=== PATIENT | male | born 1990 | race Caucasian/White ===

== ENCOUNTER 2016-06-22 16:20 | Emergency (ER) | payer SELFPAY ==
[~2016-06-22] VITALS: Wt 75.0 kg
== END 2016-06-22 19:39 | disposition left against medical advice (07) ==
LOC: FTE 16:20
DX: Z53.21 Procedure and treatment not carried out due to patient leaving prior to being seen by health care provider (principal)

== ENCOUNTER 2016-06-24 08:10 | Emergency (ER) | payer OTHER ==
[~2016-06-24] VITALS: Ht 180.3 cm; Wt 76.0 kg
[2016-06-24 08:11] VITALS: Ht 180.3 cm; Wt 76.0 kg
--- NOTE | 2016-06-24 08:44 | ERD ---
ER Documentation Chief Complaint Date/Time DATE: 06/24/16 TIME: 08:37 Chief Complaint r thumb old lac notb healing properly HPI This is a 26-year-old male who presents to the emergency department today for a right thumb laceration he sustained 6 days ago while breaking into a window. Patient states he used Dr. Holden to close it but it is not closing well. Patient states he was here a few days ago but there was too many people in the waiting room and he left because his thumb with bleeding. States he abuses IV drugs .Denies any fevers or chills. ROS All systems reviewed and are negative except as per history of present illness. Medications Home Meds Active Scripts Ibuprofen* (Motrin*) 800 Mg Tab, 800 MG PO Q6, #30 TAB Prov:EMMANUEL SANTANA PA-C 06/24/16 Cephalexin* (Keflex*) 500 Mg Capsule, 500 MG PO QID for 7 Days, CAP Prov:EMMANUEL SANTANA PA-C 06/24/16 Allergies Allergies: Coded Allergies: No Known Allergy (Unverified , 06/22/16) PMhx/Soc Medical and Surgical Hx: pt denies Medical Hx, pt denies Surgical Hx Hx Alcohol Use: No Hx Substance Use: No Hx Tobacco Use: No Smoking Status: Never smoker Physical Exam Vitals Vital Signs Date Time Temp Pulse Resp B/P Pulse Ox O2 Delivery O2 Flow Rate FiO2 06/24/16 08:11 97.1 86 18 138/84 100 Physical Exam Const: No acute distress Head: Atraumatic Eyes: Normal Conjunctiva ENT: Normal External Ears, Nose and Mouth. Neck: Full range of motion..~ No meningismus. Resp: Clear to auscultation bilaterally Cardio: Regular rate and rhythm, no murmurs Abd: Soft, non tender, non distended. Normal bowel sounds Skin: 2 cm laceration right thumb healing by secondary intention. No purulent drainage. No erythema or warmth. Back: No midline or flank tenderness MSK: 2 cm laceration right thumb healing by secondary intention. No purulent drainage. No erythema or warmth. Full active range of motion of thumb. Pulses 2+ . Distal neurovascularly intact. Neur: Awake and alert Psych: Normal Mood and Affect Results 24 hrs DIAGNOSTIC IMAGING REPORT Patient: KAMLESH MATHEWS : 1990 Age: 26 Sex: M MR #: [id number] DOS: 06/24/16 0000 Ordering MD: EMMANUEL SANTANA PA-C Location: [facility] Room/Bed: PROCEDURE: XR Thumb. CLINICAL INDICATION: Possible foreign body TECHNIQUE: Three views of the right thumb are available for review. COMPARISON: None available FINDINGS: There is a small exostosis at the base of the first metacarpal, likely sequelae of remote trauma. The remaining osseous structures are intact and there is no radiopaque foreign body. The articular surfaces are smooth. IMPRESSION: 1. No acute osseous abnormality or radiopaque foreign body. RPTAT: TT .Theo Marinelli MD, MD Date Time Electronically viewed and signed by .Theo Marinelli MD, MD on 06/24/2016 09:10 .d/ CC: EMMANUEL SANTANA PA-C Procedures/MDM This is a 26-year-old male who presents to the emergency department today for a laceration he sustained on his right thumb 6 days ago. I've explained to the patient that we are unable to suture his laceration at this time given the length of duration that he has had the laceration. Wound appears to healing by secondary intention at this time. Given that the patient did cut it breaking into a glass window I did obtain images of the right thumb to check for foreign body. Per the radiology report, images of the right thumb a small exostosis of the base of the first metacarpal likely sequelae of remote trauma. Remaining office structures are intact and there is no radiopaque foreign body. No evidence of acute fracture or dislocation. Patient's symptoms at this time consistent with laceration. There is no acute fracture dislocation. Again we will need to heal by secondary intention at this time. Patient is afebrile and otherwise well-appearing. I was suspicion for sepsis or deep space infection or cellulitis. There is no evidence of purulent drainage or erythema or warmth. Steri-Strips were placed here in the emergency department. I will give the patient a prescription for Keflex and Motrin. Instructions given for 48 hour wound check. At this time the patient is stable for discharge and outpatient management. Patient should follow up with their PCP in the next 1-2 days. They may return to the emergency department sooner for any persistent or worsening of symptoms. Patient understood and agreed with the plan. Departure Diagnosis: Primary Impression: Laceration Condition: EMMANUEL Hernández PA-C Jun 24, 2016 08:44
--- NOTE | 2016-06-24 09:10 | RADRPT ---
PROCEDURE: XR Thumb. CLINICAL INDICATION: Possible foreign body TECHNIQUE: Three views of the right thumb are available for review. COMPARISON: None available FINDINGS: There is a small exostosis at the base of the first metacarpal, likely sequelae of remote trauma. T he remaining osseous structures are intact and there is no radiopaque foreign body. The articular s urfaces are smooth. IMPRESSION: 1. No acute osseous abnormality or radiopaque foreign body. RPTAT: TT .Theo Marinelli MD, MD Date Time Electronically viewed and signed by .Theo Marinelli MD, MD on 06/24/2016 09:10 .d/
[2016-06-24] MEDS ORDERED: CEPH-443 PO (09:21)
[2016-06-24] MEDS ORDERED: IBUP800T25 PO (09:21)
== END 2016-06-24 09:36 | disposition home or self-care (01) ==
LOC: FTE 08:10
DX: S61.011A Laceration without foreign body of right thumb without damage to nail, initial encounter (principal); W26.9XXA Contact with unspecified sharp object(s), initial encounter; Y92.9 Unspecified place or not applicable
CPT/HCPCS: 73140

== ENCOUNTER 2016-09-12 21:50 | Emergency (ER) | payer OTHER ==
[~2016-09-12] VITALS: Ht 182.9 cm; Wt 79.5 kg
[~2016-09-12 21:50] MED LIST: CEPH-443 PO; IBUP800T25 PO
[2016-09-12 22:01] VITALS: Ht 182.9 cm; Wt 79.5 kg
[2016-09-12] MEDS ORDERED: LORAZEPAM 2 MG INJ IM STA (22:30)
--- NOTE | 2016-09-12 22:35 | ERD ---
ER Documentation Chief Complaint Date/Time DATE: 09/12/16 TIME: 22:33 Chief Complaint GARRICK LOPEZ c/o anxiety,homeless HPI Patient is a 26-year-old male who was found acting bizarrely in a store and was brought to the ER. Patient initially stated he had abdominal pain, then stated that he has anxiety, then stated to me that he had groin pain then later stated that he did not have groin pain. The patient is resisting answering questions, stating "I just need to breathe, I just need to breathe." Patient is homeless. History limited by patient's condition. ROS All systems reviewed and are negative except as per history of present illness. Medications Home Meds Active Scripts Ibuprofen* (Motrin*) 800 Mg Tab, 800 MG PO Q6, #30 TAB Prov:EMMANUEL SANTANA PA-C 06/24/16 Cephalexin* (Keflex*) 500 Mg Capsule, 500 MG PO QID for 7 Days, CAP Prov:EMMANUEL SANTANA PA-C 06/24/16 Allergies Allergies: Coded Allergies: No Known Allergy (Unverified , 06/22/16) PMhx/Soc Past medical history: Cannot assess Past surgical history: Cannot assess Social history: Patient is homeless, denies illicit drugs. Hx Alcohol Use: No Hx Substance Use: No Hx Tobacco Use: No FmHx Cannot assess Physical Exam Vitals Vital Signs Date Time Temp Pulse Resp B/P Pulse Ox O2 Delivery O2 Flow Rate FiO2 09/13/16 03:45 98.3 88 18 122/82 100 Room Air 09/13/16 02:00 97.0 92 18 126/87 100 Room Air 09/13/16 00:00 97.2 80 16 124/85 100 Room Air 09/12/16 22:01 98.6 130 18 139/82 98 Physical Exam Const: Patient talking to himself, poor eye contact Head: Atraumatic Eyes: Normal Conjunctiva, no pallor or icterus, pupils midrange ENT: Normal External Ears, Nose and Mouth. Moist mucous membranes Neck: Full range of motion. No meningismus. Resp: Clear to auscultation bilaterally Cardio: Regular rate and rhythm, no murmurs Abd: Soft, non tender, non distended. Skin: No petechiae or rashes Ext: No cyanosis, or edema Neur: Awake and alert, cranial nerves II through XII intact, not cooperative with rest of neurologic exam Psych: Responding to internal stimuli, refusing to answer questions, psychomotor agitation Result Diagram: 09/12/165 09/12/165 Results 24 hrs Laboratory Tests Test 09/12/16 23:15 White Blood Count 13.410^3/ul Red Blood Count 4.5610^6/ul Hemoglobin 13.7g/dl Hematocrit 39.8% Mean Corpuscular Volume 87.3fl Mean Corpuscular Hemoglobin 30.0pg Mean Corpuscular Hemoglobin Concent 34.4g/dl Red Cell Distribution Width 13.1% Platelet Count 41302^3/UL Mean Platelet Volume 9.1fl Neutrophils % 75.9% Lymphocytes % 12.0% Monocytes % 11.4% Eosinophils % 0.1% Basophils % 0.1% Nucleated Red Blood Cells % 0.0/100WBC Neutrophils # 10.210^3/ul Lymphocytes # 1.610^3/ul Monocytes # 1.510^3/ul Eosinophils # 0.010^3/ul Basophils # 0.010^3/ul Nucleated Red Blood Cells # 0.010^3/ul Sodium Level 140mmol/L Potassium Level 3.6mmol/L Chloride Level 103mmol/L Carbon Dioxide Level 25mmol/L Anion Gap 16 Blood Urea Nitrogen 16mg/dl Creatinine 1.05mg/dl Glucose Level 80mg/dl Calcium Level 9.1mg/dl Total Bilirubin 0.4mg/dl Direct Bilirubin 0.00mg/dl Indirect Bilirubin 0.4mg/dl Aspartate Amino Transf (AST/SGOT) 22IU/L Alanine Aminotransferase (ALT/SGPT) 39IU/L Alkaline Phosphatase 71IU/L Creatine Kinase 188IU/L Total Protein 7.4g/dl Albumin 4.3g/dl Globulin 3.10g/dl Albumin/Globulin Ratio 1.38 Salicylates Level < 1.0mg/dl Acetaminophen Level < 10.0ug/ml Ethyl Alcohol Level < 10.0mg/dl Current Medications Medications (Trade) Dose Ordered Sig/Isha Route PRN Reason Start Time Stop Time Status Last Admin Dose Admin Lorazepam (Ativan) 2 mg ONCE STAT IM 09/12/16 22:30 09/12/16 22:33 DC 09/12/16 22:41 Procedures/MDM Patient is a 26-year-old male who presents with complaint of anxiety and is noted to be talking to himself and to be withdrawn. Symptoms are suggestive of schizophrenia. Patient denies suicidal ideation or homicidal ideation, but provides only limited history. The patient was evaluated by tele-psychiatry, Dr. Kan, who recommends placing the patient on a 5150 hold. The patient is medically clear, awaiting PET team for hole placement. The patient will be placed on temporary hold until formal evaluation can take place. Urinary drug screen is still pending. Departure Diagnosis: Primary Impression: Psychosis Schizoaffective disorder type: unspecified Additional Impressions: Auditory hallucinations Anxiety Condition: Stable EVE MUNOZ MD Sep 12, 2016 22:35
[2016-09-12 23:23] LABS: ADD SCAN DIFF NO
[2016-09-12 23:31] LABS: ABNORMAL IP MESSAGE 1; BASOPHILS % 0.1 % (0.0-2.0); EOSINOPHILS % 0.1 % (0.0-7.0); HEMATOCRIT 39.8 % (42.0-52.0); HEMOGLOBIN 13.7 g/dl (14.0-18.0); LYMPHOCYTES # 1.6 10^3/ul (0.8-2.9); MEAN CORPUSCULAR HGB CONC 34.4 g/dl (32.0-37.0); MEAN CORPUSCULAR VOLUME 87.3 fl (82.0-101.0); MEAN PLATELET VOLUME 9.1 fl (7.4-10.4); MONOCYTE # 1.5 10^3/ul (0.3-0.9); MONOCYTES % 11.4 % (0.0-11.0); NEUTROPHIL # 10.2 10^3/ul (1.6-7.5); NEUTROPHILS % 75.9 % (39.0-77.0); PLATELET COUNT 294 10^3/UL (140-415); RED BLOOD COUNT 4.56 10^6/ul (4.70-6.10); RED CELL DISTRIBUTION WIDTH 13.1 % (11.5-14.5); WHITE BLOOD COUNT 13.4 10^3/ul (4.8-10.8)
[2016-09-12 23:40] LABS: ALBUMIN 4.3 g/dl (3.3-4.9); CHLORIDE 103 mmol/L (97-110); SODIUM 140 mmol/L (135-144)
[2016-09-12 23:41] LABS: POTASSIUM 3.6 mmol/L (3.5-5.1)
[2016-09-12 23:42] LABS: CREATININE 1.05 mg/dl (0.61-1.24)
[2016-09-12 23:43] LABS: ALANINE AMINOTRANSFERASE 39 IU/L (13-69); ALBUMIN/GLOBULIN RATIO 1.38; ALKALINE PHOSPHATASE 71 IU/L (42-121); ANION GAP 16 (8-16); ASPARTATE AMINO TRANSFERASE 22 IU/L (15-46); BILIRUBIN,INDIRECT 0.4 mg/dl (0-1.1); BILIRUBIN,TOTAL 0.4 mg/dl (0.2-1.3); BLOOD UREA NITROGEN 16 mg/dl (7-20); CALCIUM 9.1 mg/dl (8.4-10.2); CARBON DIOXIDE 25 mmol/L (21-31); CREATINE KINASE 188 IU/L (23-200); GLUCOSE 80 mg/dl (70-220); TOTAL PROTEIN 7.4 g/dl (6.1-8.1)
[2016-09-12 23:45] LABS: ACETAMINOPHEN < 10.0 ug/ml (10.0-30.0); ETHANOL < 10.0 mg/dl; SALICYLATE < 1.0 mg/dl (5.0-30.0)
--- NOTE | 2016-09-13 00:52 | PSY ---
Date/Time of Note Date/Time of Note DATE: 09/13/16 TIME: 00:51 Psychiatric Subjective Eval Consent Pt consented to telemedicine: Yes Subjective Evaluation Patient location: emergency Chief Complaint: BIBA RA c/o anxiety,homeless Medical history Problems Medical Problems: (1) Laceration Status: Acute Allergies: Coded Allergies: No Known Allergy (Unverified , 06/22/16) Psychiatric Objective Eval Mental Status Examination: Laboratory Results Laboratory Tests Test 09/12/16 23:15 White Blood Count 13.410^3/ul Red Blood Count 4.5610^6/ul Hemoglobin 13.7g/dl Hematocrit 39.8% Mean Corpuscular Volume 87.3fl Mean Corpuscular Hemoglobin 30.0pg Mean Corpuscular Hemoglobin Concent 34.4g/dl Red Cell Distribution Width 13.1% Platelet Count 20956^3/UL Mean Platelet Volume 9.1fl Neutrophils % 75.9% Lymphocytes % 12.0% Monocytes % 11.4% Eosinophils % 0.1% Basophils % 0.1% Nucleated Red Blood Cells % 0.0/100WBC Neutrophils # 10.210^3/ul Lymphocytes # 1.610^3/ul Monocytes # 1.510^3/ul Eosinophils # 0.010^3/ul Basophils # 0.010^3/ul Nucleated Red Blood Cells # 0.010^3/ul Sodium Level 140mmol/L Potassium Level 3.6mmol/L Chloride Level 103mmol/L Carbon Dioxide Level 25mmol/L Anion Gap 16 Blood Urea Nitrogen 16mg/dl Creatinine 1.05mg/dl Glucose Level 80mg/dl Calcium Level 9.1mg/dl Total Bilirubin 0.4mg/dl Direct Bilirubin 0.00mg/dl Indirect Bilirubin 0.4mg/dl Aspartate Amino Transf (AST/SGOT) 22IU/L Alanine Aminotransferase (ALT/SGPT) 39IU/L Alkaline Phosphatase 71IU/L Creatine Kinase 188IU/L Total Protein 7.4g/dl Albumin 4.3g/dl Globulin 3.10g/dl Albumin/Globulin Ratio 1.38 Salicylates Level < 1.0mg/dl Acetaminophen Level < 10.0ug/ml Ethyl Alcohol Level < 10.0mg/dl Assessment Additional comments: IDENTIFYING INFORMATION: 26 year old Male patient who is currently at the hospital and for whom psychiatric consultation was requested. SOURCES OF INFORMATION: The patient who appears to be unreliable and the medical records; the nursing staff. CHIEF COMPLAINT: I was having bad dreams". HISTORY OF PRESENT ILLNESS: The patient was interviewed via telemedicine in the presence of and under the supervision of nursing staff of the hospital. The consent to conducting this interview via telemedicine was obtained by the nursing staff at the hospital. Dr. Barbour reports that the patient was having erratic behavior, RTIS and would not respond to questions. According to the emergency room physician's note, the patient was found acting in bizarre ways in a store and was brought into the emergency room. The patient stated initially that he had abdominal pain, then stated that he has anxiety, and stated that he has groin pain later retracted that statement. The patient would then not respond to questions reporting that I just need to breathe, I just need to breathe. The patient reports that he was having bad dreams. Reports that he is having AH. He is unable to specify what type of auditory hallucination he is having. Denies having used drugs or alcohol. The patient then terminates the interview prematurely Bruna will not respond to any further questions. PAST MEDICAL HISTORY: Unable to assess, because the patient was not able to participate in the interview. CURRENT MEDICATIONS: Unable to assess, because the patient was not able to participate in the interview.. ALLERGIES TO MEDICATIONS: Unable to assess, because the patient was not able to participate in the interview- per chart the patient has no known medication allergies. LABORATORY TESTS: vital signs with temperature 98.6, blood pressure 139/82, heart rate 130, respiratory rate 18, pulse ox 98%. CBC with hemoglobin of 13.7, hematocrit 39.8. CMP unremarkable, alcohol was not detected. SOCIAL HISTORY: Unable to assess, because the patient was not able to participate in the interview. REVIEW OF SYSTEMS: Unable to assess, because the patient was not able to participate in the interview. MENTAL STATUS EXAMINATION: General Appearance and Behavior: somewhat sleepy, appears to be responding to internal stimuli, uncooperative with most of the interview, distant with the current interviewer, makes poor eye contact, poorly groomed, decreased psychomotor activity, no abnormal movements noted. Speech: slow rate, regular rhythm, increased latency, low volume, decreased amount. Flow of thought: tangential, illogical, not goal-directed. Content of thought: + auditory hallucinations, Unable to assess, because the patient was not able to participate in the interview. Mood: Unable to assess, because the patient was not able to participate in the interview. Affect: flat, decreased range of reactivity. Attention: normal based on the interview. Insight: poor. Judgment: poor. Memory: Unable to assess, because the patient was not able to participate in the interview. Sensorium: alert and oriented to person, Unable to assess, because the patient was not able to participate in the interview. ASSESSMENT: The patient's presentation and history are consistent with the diagnosis of unspecified psychotic disorder. The patient presents with an exacerbation of psychosis. The patient is not able to participate in the interview in a meaningful manner due to psychosis. It is unclear whether the patient has a past psychiatric history independent of substance use. It is unclear whether the patient has used substances or not tonight, but he denied having used alcohol or substances. [place] I: unspecified psychotic disorder. [place] II: Deferred. [place] III: see PMH. [place] IV: social stressors. [place] V: GAF: 10. PLAN: - Medication management: Would start haloperidol 5 mg IM PRN severe agitation [id number]. Would start diphenhydramine 50 mg IM PRN severe agitation [id number]. Will defer to the inpatient psychiatry team for other medication changes. - Labs: No other laboratory tests are needed at this time. - Psychotherapy: Provided supportive psychotherapy and psychoeducation. - Disposition: Would recommend involuntary admission to the inpatient psychiatric unit given the severity of the patient's psychiatric condition and the fact that the patient is an imminent danger to self and/or others so long as the patient has been cleared medically for admission to psychiatry. Inpatient psychiatric admission is at this time the least restrictive environment where the patient can receive the psychiatric care that is needed. Would place on suicide precautions. The patient fulfills criteria for being placed on involuntary hold due to being gravely disabled. Discussed about the above plan with Dr. Barbour. DEANN WERNER MD Sep 13, 2016 00:52
[2016-09-13 06:46] LABS: ADD UMIC YES; URINE BILIRUBIN (Dip) NEGATIVE (NEGATIVE); URINE BLOOD (Dip) NEGATIVE (NEGATIVE); URINE COLOR LT. YELLOW (YELLOW); URINE GLUCOSE (Dip) NEGATIVE (NEGATIVE); URINE KETONES (Dip) NEGATIVE (NEGATIVE); URINE LEUKOCYTE ESTERASE (Dip) NEGATIVE (NEGATIVE); URINE NITRITE (Dip) NEGATIVE (NEGATIVE); URINE TOTAL PROTEIN (Dip) 1+ (NEGATIVE); URINE UROBILINOGEN (Dip) 0.2 E.U./dL (0.1-1.0)
[2016-09-13 07:11] LABS: MUCUS,URINE OCCASIONAL; URINE RBCS NONE SEEN /HPF (0)
[2016-09-13 07:25] LABS: BARBITURATES Negative (NEGATIVE); BENZODIAZEPINES Negative (NEGATIVE); CANNABINOIDS Negative (NEGATIVE); COCAINE Negative (NEGATIVE); OPIATES Negative (NEGATIVE)
[2016-09-13] MEDS ORDERED: HYDR25CA PO (11:10)
--- NOTE | 2016-09-13 11:12 | QN ---
Documentation Comment This patient was signed out to me. He remained calm in the emergency room was very reasonable. PMRT evaluated the patient and he stated he does not have any suicidal homicidal ideations. PMR T specialist who evaluated the patient face-to -face at bedside recommends discharge does not seen any reason for inpatient admission at this point. A minute discharging him with Vistaril for anxiety as well as strict return precautions emergency room if he has any thoughts of harming himself or others. He states that he will return if anything like this happens. Is also given resources Sonya Freeman I'm discharging with primary care follow-up today or tomorrow. KAEL SKY DO Sep 13, 2016 11:11
[2016-09-13 11:21] VITALS: BP 135/63; PULSE 90; RESP 19; TEMP 97.8
== END 2016-09-13 11:21 | disposition home or self-care (01) ==
LOC: E/R 21:50
DX: F29 Unspecified psychosis not due to a substance or known physiological condition (principal)
CPT/HCPCS: 80053; 80306; 80307; 81001; 81003; 82550; 82553; 84484; 85025; J2060; 96372

== ENCOUNTER 2017-01-07 08:35 | Emergency (ER) | payer MEDICAID, OTHER ==
[~2017-01-07] VITALS: Ht 177.8 cm; Wt 78.5 kg
[~2017-01-07 08:35] MED LIST changes: +HYDR25CA PO
[2017-01-07 08:37] VITALS: Ht 177.8 cm; Wt 78.5 kg
[2017-01-07] MEDS ORDERED: CLOT30CR24 TOP (08:53)
--- NOTE | 2017-01-07 08:59 | ERA ---
ER Documentation Chief Complaint Date/Time DATE: 01/07/17 TIME: 08:55 Chief Complaint rash/fungus on groin x 2 weeks HPI 18-year-old male presenting with a chief complaint of "blue fuzzy stuff on my scrotum" times months. Patient also describes mild pruritus. States he rubs it often comes back. Has not washed with soap and water with temporary relief. Denies pain, dysuria, hematuria, discharge, multiple sexual partners, or similar symptoms in the past. No other complaints. ROS All systems reviewed and are negative except as per history of present illness. Medications Home Meds Active Scripts Clotrimazole* (Clotrimazole* AF) 1% - 30 Gm Cream.gm., 1 APPLIC TOP BID for 7 Days, TUB Prov:JEIMY TOMLINSON PA-C 01/07/17 Hydroxyzine Pamoate* (Vistaril*) 25 Mg Capsule, 25 MG PO Q8 for ANXIETY, #10 CAP Prov:KAEL SKY DO 09/13/16 Ibuprofen* (Motrin*) 800 Mg Tab, 800 MG PO Q6, #30 TAB Prov:EMMANUEL SANTANA PA-C 06/24/16 Cephalexin* (Keflex*) 500 Mg Capsule, 500 MG PO QID for 7 Days, CAP Prov:EMMANUEL SANTANA PA-C 06/24/16 Allergies Allergies: Coded Allergies: No Known Allergy (Unverified , 01/07/17) PMhx/Soc History of Surgery: No Anesthesia Reaction: No Hx Neurological Disorder: No Hx Respiratory Disorders: No Hx Cardiac Disorders: No Hx Psychiatric Problems: Yes (DEPRESSION, ANXIETY) Hx Miscellaneous Medical Probl: No Hx Alcohol Use: No Hx Substance Use: No Hx Tobacco Use: No Physical Exam Vitals Vital Signs Date Time Temp Pulse Resp B/P Pulse Ox O2 Delivery O2 Flow Rate FiO2 01/07/17 08:37 97.5 86 16 115/73 96 Physical Exam Const: Well-appearing 26-year-old male in no acute distress Head: Atraumatic Eyes: Normal Conjunctiva ENT: Normal External Ears, Nose and Mouth. Neck: Full range of motion..~ No meningismus. Resp: Clear to auscultation bilaterally Cardio: Regular rate and rhythm, no murmurs Abd: Soft, non tender, non distended. Normal bowel sounds Skin: No petechiae or rashes Back: No midline or flank tenderness Ext: No cyanosis, or edema Neur: Awake and alert Psych: Normal Mood and Affect : No testicular pain. Adequate cremasteric reflex. Lint type of material from a blue underwear on his scrotal sac that rubs off easily. Procedures/MDM Well-appearing 26-year-old male with a chief complaints of possible fungus on his scrotum. Physical exam was remarkable for blue lint-type material on scrotum. Symptoms returned even after cleaning it off. Most likely diagnosis is material from underwear versus tinea cruris. We will go ahead and prescribe the patient clotrimazole. I have spoke with the patient regarding their condition and future management. They have verbally responded that they understand their status and treatment plan. The patients vitals are stable, and their current condition is appropriate for discharge. The patient will be given discharge instructions with return precautions. Departure Diagnosis: Primary Impression: Tinea cruris Additional Impression: Rash Condition: Stable Patient Instructions: Self-Care for Skin Rashes Additional Instructions: Follow up with your PCP within the next 1-3 days for a more thorough evaluation and a possible referral to a specialist. Return the the emergency department immediately if symptoms worsen or change. If you have any questions regarding medications, ask your pharmacist or us before you leave. If any adverse reactions occur while taking your medications, discontinue the treatment and return to the emergency department immediately. Take your medications as directed, and complete the entire course of treatment. JEIMY TOMLINSON PA-C Jan 07, 2017 08:59
== END 2017-01-07 09:50 | disposition home or self-care (01) ==
LOC: FTE 08:35
DX: B35.6 Tinea cruris (principal)
CPT/HCPCS: 99283

== ENCOUNTER 2017-07-06 13:41 | Emergency (ER) | END 2017-07-06 15:03 | disposition home or self-care (01) ==

== ENCOUNTER 2017-08-16 10:14 | Emergency (ER) | END 2017-08-16 13:30 | disposition home or self-care (01) ==

== ENCOUNTER 2017-10-17 03:11 | Emergency (ER) | END 2017-10-17 06:19 | disposition home or self-care (01) ==

== ENCOUNTER 2017-10-17 12:45 | Emergency (ER) | END 2017-10-17 13:52 | disposition home or self-care (01) ==

== ENCOUNTER 2017-10-18 20:55 | Emergency (ER) | END 2017-10-18 23:35 | disposition home or self-care (01) ==

== ENCOUNTER 2017-10-19 08:17 | Emergency (ER) | END 2017-10-19 16:17 | disposition home or self-care (01) ==

== ENCOUNTER 2018-04-13 13:11 | Emergency (ER) | END 2018-04-13 16:42 | disposition home or self-care (01) ==

== ENCOUNTER 2018-04-14 03:06 | Emergency (ER) | END 2018-04-14 11:28 ==

== ENCOUNTER 2018-05-14 00:30 | Emergency (ER) | END 2018-05-14 08:00 | disposition home or self-care (01) ==

== ENCOUNTER 2018-06-17 17:57 | Emergency (ER) | payer OTHER ==
[~2018-06-17] VITALS: Ht 152.4 cm; Wt 88.0 kg
[~2018-06-17 17:57] MED LIST changes: -CEPH-443 PO; -HYDR25CA PO; -IBUP800T25 PO; +NAPR-985 PO
[2018-06-17 17:58] VITALS: Ht 152.4 cm; Wt 88.0 kg
--- NOTE | 2018-06-17 20:54 | EN ---
Date/Time of Note Date/Time of Note DATE: 06/17/18 TIME: 20:52 ER Progress Note Upon evaluation of patient at the bedside, patient verbalizes that he has history of schizoaffective disorder and is feeling suicidal and wants to hurt himself, patient verbalized this in front of the nurse, and informed charge nurse about this. Patient will be transferred in the main department for further evaluation and psychiatric evaluation. PETER ANDREWS NP Jun 17, 2018 20:53
--- NOTE | 2018-06-17 23:21 | ERD ---
ER Documentation Chief Complaint Chief Complaint Suicidal ideation HPI 28-year-old male who presents to the emergency with suicidal ideation. He initially checked in clinic of abdominal pain but denies this. He states the reason he is in the emergency department is because he is feeling suicidal. He states that his just filed for divorce. The patient has an active plan to jump into traffic. He denies any drug or alcohol today. ROS All systems reviewed and are negative except as per history of present illness. Medications Home Meds Active Scripts Naproxen* (Naprosyn*) 500 Mg Tablet, 500 MG PO BID PRN for PAIN AND/OR INFLAMMATION, #30 TAB Prov:FLO AGUILAR MD 05/14/18 Allergies Allergies: Coded Allergies: No Known Allergy (Unverified , 04/13/18) PMhx/Soc History of Surgery: Yes (right arm) Anesthesia Reaction: No Hx Neurological Disorder: Yes (SEIZURE) Hx Respiratory Disorders: No Hx Cardiac Disorders: Yes (HTN) Hx Psychiatric Problems: Yes (schizoaffective) Hx Miscellaneous Medical Probl: Yes (HTN) Hx Alcohol Use: No Hx Substance Use: Yes Hx Tobacco Use: Yes Smoking Status: Current every day smoker FmHx Family History: No diabetes Physical Exam Vitals Vital Signs Date Temp Pulse Resp B/P (MAP) Pulse Ox O2 O2 Flow FiO2 Time Delivery Rate 06/17/18 99.0 122 18 99 17:58 Physical Exam General: Well developed, well nourished, no acute distress Head: Normocephalic, atraumatic. Eyes: Pupils equally reactive, EOM intact ENT: Moist mucous membranes Neck: Supple, no lymphadenopathy Respiratory: Lungs clear bilaterally, no distress Cardiovascular: RRR, no murmurs, rubs, or gallops Abdominal: Soft, non-tender, non-distended, no peritoneal signs : Deferred MSK: No edema, no unilateral swelling, 5/5 strength Neurologic: Alert and oriented, moving all extremities, normal speech, no focal weakness, no cerebellar signs Skin: No rash Psych: Suicidal ideation with plan Result Diagram: 06/17/18210906/17/182109 Results 24 hrs Laboratory Tests Test 06/17/18 21:10 White Blood Count 6.3 10^3/ul Red Blood Count 4.45 10^6/ul Hemoglobin 13.2 g/dl Hematocrit 38.5 % Mean Corpuscular Volume 86.5 fl Mean Corpuscular Hemoglobin 29.7 pg Mean Corpuscular Hemoglobin Concent 34.3 g/dl Red Cell Distribution Width 12.9 % Platelet Count 222 10^3/UL Mean Platelet Volume 8.9 fl Immature Granulocytes % 0.300 % Neutrophils % 52.6 % Lymphocytes % 31.9 % Monocytes % 13.0 % Eosinophils % 1.7 % Basophils % 0.5 % Nucleated Red Blood Cells % 0.0 /100WBC Immature Granulocytes # 0.020 10^3/ul Neutrophils # 3.3 10^3/ul Lymphocytes # 2.0 10^3/ul Monocytes # 0.8 10^3/ul Eosinophils # 0.1 10^3/ul Basophils # 0.0 10^3/ul Nucleated Red Blood Cells # 0.0 10^3/ul Sodium Level 137 mmol/L Potassium Level 4.2 mmol/L Chloride Level 103 mmol/L Carbon Dioxide Level 26 mmol/L Anion Gap 8 Blood Urea Nitrogen 26 mg/dl Creatinine 0.98 mg/dl Est Glomerular Filtrat Rate mL/min > 60 mL/min Glucose Level 119 mg/dl Calcium Level 9.3 mg/dl Total Bilirubin 0.1 mg/dl Direct Bilirubin 0.00 mg/dl Indirect Bilirubin 0.1 mg/dl Aspartate Amino Transf (AST/SGOT) 16 IU/L Alanine Aminotransferase (ALT/SGPT) 17 IU/L Alkaline Phosphatase 52 IU/L Total Protein 6.8 g/dl Albumin 4.0 g/dl Globulin 2.80 g/dl Albumin/Globulin Ratio 1.42 Ethyl Alcohol Level < 10.0 mg/dl Procedures/MDM EKG/DIAGNOSTIC IMAGING: [None Required] LAB INTERPRETATION: [No acute process] MEDICAL DECISION MAKING: The patient's presentation is consistent with underlying psychiatric illness and likely exacerbation of this illness and/or psychosis. I have a much lower clinical concern for delirium or acute organic pathology such as toxicologic, metabolic, ischemic, intracranial hemorrhage, infectious process. However, we must rule this out prior to relying a diagnosis of underlying psychiatric illness. The patient's workup will include medical screening examination and appropriate laboratory testing. If the patient's medical examination does not reveal acute organic pathology the patient will be medically cleared for psychiatric evaluation. ER COURSE: The patient's evaluation does not suggest an acute organic pathology. At this time I believe the patient's presentation is very consistent with underlying psychiatric illness. The patient is medically cleared for psychiatric evaluation. CONSULTATION: Psychiatric consultation: Telemetry medicine psychiatry has been consulted on this case to evaluate the patient for possible acute psychiatric illness that would require inpatient hospitalization. DISPOSITION PLAN: Pending psychiatric evaluation Departure Diagnosis: Primary Impression: Suicidal ideation Condition: Stable ELIJAH NAVA MD Jun 17, 2018 23:21
--- NOTE | 2018-06-18 00:26 | PSY ---
Date/Time of Note Date/Time of Note DATE: 06/18/18 TIME: 00:13 Psychiatric Subjective Eval Consent Pt consented to telemedicine: Yes Subjective Evaluation Patient location: emergency Chief Complaint: RLQ ABD PAIN X 11 HOURS History of present illness He was very uncooperative and vague and stated that his is leaving him and so he wants to jump off a bridge. He denied having hallucinations. When asked if he really wanted to commit suicide and he stated, "Yeah, I do." He fell asleep repeatedly which made a more comprehensive interview impossible. Past psychiatric history Stated he was diagnosed Schizoaffective but never took medication and was never hospitalized. He denied past suicide attempts. Hospitalization: no Family History None Medical history Problems Medical Problems: (1) Abdominal pain Status: Acute (2) Abdominal pain Status: Acute (3) Abdominal pain Status: Acute (4) Abdominal pain Status: Acute (5) Abscess Status: Acute (6) Acute psychosis Status: Acute (7) Aggressive behavior Status: Acute (8) Anxiety Status: Acute (9) Anxiety Status: Acute (10) Anxiety Status: Acute (11) Anxiety attack Status: Acute (12) Athletes foot Status: Acute (13) Auditory hallucinations Status: Acute (14) Back pain Status: Acute (15) Blister of foot Status: Acute (16) Blister of foot Status: Acute (17) Cellulitis of back Status: Acute (18) Cellulitis of back Status: Acute (19) Constipation Status: Acute (20) Dehydration Status: Acute (21) Drug abuse Status: Acute (22) Drug abuse Status: Acute (23) Drug abuse Status: Acute (24) Drug dependence Status: Acute (25) Drug dependence Status: Acute (26) Drug overdose Status: Acute (27) Drug overdose Status: Acute (28) Drug use Status: Acute (29) Drug use Status: Acute (30) Elevated blood pressure reading Status: Acute (31) Foot pain Status: Acute (32) Foot pain Status: Acute (33) Foot pain Status: Acute (34) Hallucinations Status: Acute (35) History of schizophrenia Status: Acute (36) Increased anion gap metabolic acidosis Status: Acute (37) Ingrown toenail Status: Acute (38) Laceration Status: Acute (39) Left nephrolithiasis Status: Acute (40) Leukocytosis Status: Acute (41) Methamphetamine abuse Status: Acute (42) Methamphetamine abuse Status: Acute (43) Methamphetamine use Status: Acute (44) Nausea Status: Acute (45) Nausea Status: Acute (46) Normocytic anemia Status: Acute (47) Polysubstance abuse Status: Acute (48) Psychosis Status: Acute (49) PTSD (post-traumatic stress disorder) Status: Acute (50) Rash Status: Acute (51) Substance abuse Status: Acute (52) Suicidal ideation Status: Acute (53) Suicidal ideation Status: Acute (54) Suicidal ideation Status: Acute (55) Tachycardia Status: Acute (56) Tinea cruris Status: Acute (57) Trenchfoot Status: Acute (58) Urethritis Status: Acute Allergies: Coded Allergies: No Known Allergy (Unverified , 04/13/18) Substance Abuse Substance use: No known substance abuse (He denied drug use. UTOX pending.) Social History Marital status: (Pending) Level of education: [employer] DPA/Conservatorship: No Occupation/Jail: [employer] Psychiatric Objective Eval Mental Status Examination: Appearance: Disheveled Eye Contact: Poor Psychomotor Activity: Slow Behavior: Guarded Speech: Clear AFFECT: Blunt Mood: Depressed Though Process: Linear Thought Content: Normal Suicidal: Yes Homicidal: No On 72 hour hold: No Orientation: x3 Cognition: Drowsy Insight: Impared Judgement: Impared Attention Span: Distractible Laboratory Results Laboratory Tests Test 06/17/18 21:10 06/17/18 23:33 White Blood Count 6.3 10^3/ul Red Blood Count 4.45 10^6/ul Hemoglobin 13.2 g/dl Hematocrit 38.5 % Mean Corpuscular Volume 86.5 fl Mean Corpuscular Hemoglobin 29.7 pg Mean Corpuscular Hemoglobin Concent 34.3 g/dl Red Cell Distribution Width 12.9 % Platelet Count 222 10^3/UL Mean Platelet Volume 8.9 fl Immature Granulocytes % 0.300 % Neutrophils % 52.6 % Lymphocytes % 31.9 % Monocytes % 13.0 % Eosinophils % 1.7 % Basophils % 0.5 % Nucleated Red Blood Cells % 0.0 /100WBC Immature Granulocytes # 0.020 10^3/ul Neutrophils # 3.3 10^3/ul Lymphocytes # 2.0 10^3/ul Monocytes # 0.8 10^3/ul Eosinophils # 0.1 10^3/ul Basophils # 0.0 10^3/ul Nucleated Red Blood Cells # 0.0 10^3/ul Sodium Level 137 mmol/L Potassium Level 4.2 mmol/L Chloride Level 103 mmol/L Carbon Dioxide Level 26 mmol/L Anion Gap 8 Blood Urea Nitrogen 26 mg/dl Creatinine 0.98 mg/dl Est Glomerular Filtrat Rate mL/min > 60 mL/min Glucose Level 119 mg/dl Calcium Level 9.3 mg/dl Total Bilirubin 0.1 mg/dl Direct Bilirubin 0.00 mg/dl Indirect Bilirubin 0.1 mg/dl Aspartate Amino Transf (AST/SGOT) 16 IU/L Alanine Aminotransferase (ALT/SGPT) 17 IU/L Alkaline Phosphatase 52 IU/L Total Protein 6.8 g/dl Albumin 4.0 g/dl Globulin 2.80 g/dl Albumin/Globulin Ratio 1.42 Ethyl Alcohol Level < 10.0 mg/dl Urine Opiates Screen Positive Urine Barbiturates Negative Urine Amphetamines Screen POSITIVE Urine Benzodiazepines Screen Negative Urine Cocaine Screen Negative Urine Cannabinoids Negative Assessment and Plan Assessment/Diagnosis Diagnosis Adjustment Disorder with Depressed Mood Recommendation/Plan Multiple antipsychotics: No Discharge Disposition: Psychiatric inpatient Legal Status: Place involuntary hold ALETHA EVANS MD Jun 18, 2018 00:24
[2018-06-18 08:55] VITALS: BP 118/74; PULSE 83; RESP 16
[2018-07-17] MEDS ORDERED: LORA1TAB PO (19:35)
== END 2018-06-18 09:00 ==
LOC: FTE 17:57 → E/R 06-18 09:00
DX: R45.851 Suicidal ideations (principal); R40.2142 Coma scale, eyes open, spontaneous, at arrival to emergency department; R40.2362 Coma scale, best motor response, obeys commands, at arrival to emergency department; R40.2252 Coma scale, best verbal response, oriented, at arrival to emergency department; I10 Essential (primary) hypertension; F17.210 Nicotine dependence, cigarettes, uncomplicated
CPT/HCPCS: 36415; 80053; 80307; 85025; Z7502

== ENCOUNTER 2018-08-07 11:13 | Emergency (ER) | payer OTHER ==
[~2018-08-07] VITALS: Ht 170.2 cm; Wt 75.0 kg
[~2018-08-07 11:13] MED LIST changes: +LORA1TAB PO
[2018-08-07 11:29] VITALS: Ht 170.2 cm; Wt 75.0 kg
--- NOTE | 2018-08-07 12:03 | ERD ---
ER Documentation Chief Complaint Chief Complaint BIB RA FOR EVAL OF METH USE. NO DISTRESS NOTED. HPI 28-year-old male well-known to this emergency department and this provider who presents to the emergency room because he wants an evaluation. The patient has a history of polysubstance abuse. He states that he used methamphetamine in the past 24 hours. He is called the paramedics 3 times today for nonspecific etiology. The patient was apparently walking by a holiness in the holiness was concerned with how he appeared and called 911. The patient states that he occasionally has shortness of breath but otherwise has no complaints and is asking for food. He denies any chest pain falls or injury. He denies any suicidal or homicidal ideation. Patient states that he just wants to rest for a bit and then would like to be discharged. ROS All systems reviewed and are negative except as per history of present illness. Medications Home Meds Active Scripts Lorazepam* (Lorazepam*) 1 Mg Tablet, 1 MG PO Q8H PRN for ANXIETY, #10 TAB Prov:MIRELLA HOFFMAN MD 07/17/18 Naproxen* (Naprosyn*) 500 Mg Tablet, 500 MG PO BID PRN for PAIN AND/OR INFLAMMATION, #30 TAB Prov:FLO AGUILAR MD 05/14/18 Allergies Allergies: Coded Allergies: No Known Allergy (Unverified , 04/13/18) PMhx/Soc History of Surgery: Yes (right arm) Anesthesia Reaction: No Hx Neurological Disorder: Yes (SEIZURE) Hx Respiratory Disorders: No Hx Cardiac Disorders: Yes (HTN) Hx Psychiatric Problems: Yes (schizoprenia) Hx Miscellaneous Medical Probl: Yes (METH USE) Hx Alcohol Use: No Hx Substance Use: Yes (DAILY METH USE) Hx Tobacco Use: Yes Smoking Status: Current every day smoker FmHx Family History: No diabetes Physical Exam Vitals Vital Signs Date Temp Pulse Resp B/P (MAP) Pulse Ox O2 O2 Flow FiO2 Time Delivery Rate 08/07/18 98.0 100 19 144/110 99 11:29 (121) Physical Exam General: Disheveled, no acute distress Head: Normocephalic, atraumatic. Eyes: Pupils equally reactive, EOM intact ENT: Moist mucous membranes Neck: Supple, no lymphadenopathy Respiratory: Lungs clear bilaterally, no distress Cardiovascular: RRR, no murmurs, rubs, or gallops Abdominal: Soft, non-tender, non-distended, no peritoneal signs : Deferred MSK: No edema, no unilateral swelling, 5/5 strength Neurologic: Alert and oriented, moving all extremities, normal speech, no focal weakness, no cerebellar signs Skin: No rash Psych: Normal mood, denies SI or HI Procedures/MDM The patient has a medical screening examination that reveals no signs or symp toms of acute medical emergency or psychiatric emergency. The patient has a long-standing history of malingering, drug-seeking behavior and benzodiazepine dependence in the emergency room setting. The patient is steady on his feet. The patient has denied any suicidal or homicidal ideation. He has refused geriatric social work professor resources. The patient was given food. Patient can ambulate and navigate the community. I believe at this point he is safe for discharge. Departure Diagnosis: Primary Impression: Malingering Additional Impression: Polysubstance abuse Condition: Good Patient Instructions: Substance abuse Referrals: [facility] YOU HAVE RECEIVED A MEDICAL SCREENING EXAM AND THE RESULTS INDICATE THAT YOU DO NOT HAVE A CONDITION THAT REQUIRES URGENT TREATMENT IN THE EMERGENCY DEPARTMENT. FURTHER EVALUATION AND TREATMENT OF YOUR CONDITION CAN WAIT UNTIL YOU ARE SEEN IN YOUR DOCTORS OFFICE WITHIN THE NEXT 1-2 DAYS. IT IS YOUR RESPONSIBILITY TO MAKE AN APPOINTMENT FOR FOLOW-UP CARE. IF YOU HAVE A PRIMARY DOCTOR --you should call your primary doctor and schedule an appointment IF YOU DO NOT HAVE A PRIMARY DOCTOR YOU CAN CALL OUR PHYSICIAN REFERRAL HOTLINE AT IF YOU CAN NOT AFFORD TO SEE A PHYSICIAN YOU CAN CHOSE FROM THE FOLLOWING [facility] [address] [facility]. [facility] [address] [facility] [facility] [address] [facility] [facility] [address] [facility]. [facility] [address] [facility]. [facility]. [address] [facility] YOU HAVE RECEIVED A MEDICAL SCREENING EXAM AND THE RESULTS INDICATE THAT YOU DO NOT HAVE A CONDITION THAT REQUIRES URGENT TREATMENT IN THE EMERGENCY DEPARTMENT. FURTHER EVALUATION AND TREATMENT OF YOUR CONDITION CAN WAIT UNTIL YOU ARE SEEN IN YOUR DOCTORS OFFICE WITHIN THE NEXT 1-2 DAYS. IT IS YOUR RESPONSIBILITY TO MAKE AN APPOINTMENT FOR FOLOW-UP CARE. IF YOU HAVE A PRIMARY DOCTOR --you should call your primary doctor and schedule and appointment IF YOU DO NOT HAVE A PRIMARY DOCTOR YOU CAN CALL OUR PHYSICIAN REFERRAL HOTLINE AT . IF YOU CAN NOT AFFORD TO SEE A PHYSICIAN YOU CAN CHOSE FROM THE FOLLOWING [facility] INSTITUTIONS: [facility] [address] [place] [address] [facility] [address] [place] [address] [facility] [address] [place] [address] Additional Instructions: Call your primary care doctor TOMORROW for an appointment during the next 1 WEEK.Tell the private secretary that you were referred from this facility.See the doctor sooner or return here if your condition worsens before your appointment time. ELIJAH NAVA MD Aug 07, 2018 12:03
[2018-08-07 12:25] VITALS: BP 134/95; PULSE 91; RESP 17
== END 2018-08-07 12:25 | disposition home or self-care (01) ==
LOC: E/R 11:13
DX: F15.10 Other stimulant abuse, uncomplicated (principal); I10 Essential (primary) hypertension; F17.210 Nicotine dependence, cigarettes, uncomplicated; Z76.5 Malingerer [conscious simulation]
CPT/HCPCS: 99283

== ENCOUNTER 2018-09-28 02:33 | Emergency (ER) | payer OTHER ==
[~2018-09-28] VITALS: Wt 72.9 kg
--- NOTE | 2018-09-28 04:04 | PSY ---
Date/Time of Note Date/Time of Note DATE: 09/28/18 TIME: 03:51 Psychiatric Subjective Eval Consent Pt consented to telemedicine: Yes Subjective Evaluation Patient location: emergency Chief Complaint: bib ra, pt stated "I need help". denies SI/HI last use of meth few hrs ago Medical history Problems Medical Problems: (1) Abdominal pain Status: Acute (2) Abdominal pain Status: Acute (3) Abdominal pain Status: Acute (4) Abdominal pain Status: Acute (5) Abscess Status: Acute (6) Acute psychosis Status: Acute (7) Aggressive behavior Status: Acute (8) Anxiety Status: Acute (9) Anxiety Status: Acute (10) Anxiety Status: Acute (11) Anxiety Status: Acute (12) Anxiety Status: Acute (13) Anxiety attack Status: Acute (14) Athletes foot Status: Acute (15) Auditory hallucinations Status: Acute (16) Back pain Status: Acute (17) Blister of foot Status: Acute (18) Blister of foot Status: Acute (19) Cellulitis of back Status: Acute (20) Cellulitis of back Status: Acute (21) Constipation Status: Acute (22) Dehydration Status: Acute (23) Drug abuse Status: Acute (24) Drug abuse Status: Acute (25) Drug abuse Status: Acute (26) Drug dependence Status: Acute (27) Drug dependence Status: Acute (28) Drug overdose Status: Acute (29) Drug overdose Status: Acute (30) Drug use Status: Acute (31) Drug use Status: Acute (32) Dysuria Status: Acute (33) Elevated blood pressure reading Status: Acute (34) Foot pain Status: Acute (35) Foot pain Status: Acute (36) Foot pain Status: Acute (37) Hallucinations Status: Acute (38) Hallucinations Status: Acute (39) History of schizophrenia Status: Acute (40) Increased anion gap metabolic acidosis Status: Acute (41) Ingrown toenail Status: Acute (42) Laceration Status: Acute (43) Left nephrolithiasis Status: Acute (44) Leukocytosis Status: Acute (45) Malingering Status: Acute (46) Methamphetamine abuse Status: Acute (47) Methamphetamine abuse Status: Acute (48) Methamphetamine use Status: Acute (49) Nausea Status: Acute (50) Nausea Status: Acute (51) Normal exam Status: Acute (52) Normal exam Status: Acute (53) Normocytic anemia Status: Acute (54) Polysubstance abuse Status: Acute (55) Polysubstance abuse Status: Acute (56) Psychosis Status: Acute (57) PTSD (post-traumatic stress disorder) Status: Acute (58) Rash Status: Acute (59) Substance abuse Status: Acute (60) Suicidal ideation Status: Acute (61) Suicidal ideation Status: Acute (62) Suicidal ideation Status: Acute (63) Tachycardia Status: Acute (64) Tinea cruris Status: Acute (65) Trenchfoot Status: Acute (66) Urethral discharge Status: Acute (67) Urethritis Status: Acute Allergies: Coded Allergies: No Known Allergy (Unverified , 04/13/18) Assessment and Plan Recommendation/Plan Discharge Disposition: Other (Other) Legal Status: Voluntary Assessment Additional comments: IDENTIFYING INFORMATION: 28 year old Male patient who is currently located at the hospital and for whom psychiatric consultation was requested. SOURCES OF INFORMATION: The patient who appears to be reliable and the medical records; the nursing staff. I requested to call his family but he reports there is no one available I can call at this time. CHIEF COMPLAINT: "trouble breathing". HISTORY OF PRESENT ILLNESS: The patient was interviewed via telemedicine in the presence of and under the supervision of nursing staff of the hospital. The consent to conducting this interview via telemedicine was obtained by the nursing staff at the hospital. JANET Almanza reports that the patient presented with SOB. Denies having SI, HI. H/o meth use. The patient reports having insomnia. The patient denies having AH, VH, SI, HI, delusions, depressed mood, low appetite. The patient denies using alcohol heavily or regularly. The patient denies using any other substances. In terms of past psychiatric history, the patient reports having a history of past psychiatric hospitalizations. The patient reports having a history of no past suicide attempts. Past medication trials: seroquel. PAST MEDICAL HISTORY: HTN. CURRENT MEDICATIONS: none. ALLERGIES TO MEDICATIONS: NKDA. LABORATORY TESTS: pending. SOCIAL HISTORY: homeless, , no kids, graduated from high school; Employed in construction; no access to firearms. REVIEW OF SYSTEMS: Constitutional (e.g., fever, weight loss): negative; Eyes, Ears, Nose, Mouth, Throat: negative; Cardiovascular: negative; Respiratory: negative; Gastrointestinal: negative; Genitourinary: negative; Musculoskeletal: negative; Integumentary (skin and/or breast): negative; Neurological: negative; Psychiatric: as per HPI; Endocrine: negative; Hematologic/Lymphatic: negative; Allergic/Immunologic: negative. MENTAL STATUS EXAMINATION: General Appearance and Behavior: , anxious cooperative with the interview, distant ith the current interviewer, makes fair eye contact, - poorly groomed, no abnormal movements noted. Speech: Regular rate, regular rhythm, normal latency, normal volume, normal amount. Flow of thought: sequential, logical, goal-directed. Content of thought: no auditory hallucinations, no visual hallucinations, no delusions, no suicidal ideation; the patient is future-oriented, no homicidal ideation. Mood: "Not good". Affect: Anxious, reactive. Attention: normal based on the interview. Insight: fair. Judgment: poor. Memory: normal based on the interview. Sensorium: alert and oriented to person, place and date. ASSESSMENT: The patient's presentation and history are consistent with the diagnosis of stimulant use disorder, reported history of schizoaffective disorder . The patient presents with shortness of breath. The patient denies recent substance use. The patient is not an exacerbation of psychosis at this time. The patient is not in a major depressive episode at this time. There is no evidence of vicente, hypomania this time. PLAN: - Medication management: Would start Seroquel 100 mg at bedtime . - Labs: Please check CBC, CMP, Alcohol level, UDS. - Psychotherapy: Provided supportive psychotherapy and psychoeducation. - Disposition: If the patient's alcohol level is above the legal limit, then please reconsult psychiatry to determine disposition once the patient's alcohol level is below the legal limit. If the patients urine drug screen test is positive for any substances, then please call back for new consultation to discuss the results. If the patient's alcohol level comes back below the legal limit, then the patient is appropriate for the outpatient level of care at this time from a psychiatric perspective. The patient is not an imminent danger to self or ot hers. The patient is motivated for outpatient treatment. The patient agrees to be compliant with outpatient follow-up appointments and pharmacotherapy as indicated. Would recommend that the patient follows up with a psychiatrist. Resources for outpatient follow-up will be provided by the hospital staff. The patient's risk for completed suicide is high in comparison to the general population. Risk factors include race, gender, substance use disorder, history of psychotic disorder, poor social support, limited access to care. Protective factors include marital status, age, options of bipolar disorder, major depressive disorder, anxiety disorder, personality disorder, no access to firearms, no history of past suicide attempts, no major chronic medical probl ems. The patient is clearly future oriented, cares for his well-being, complaining of shortness of breath, seeking medical care. Risks, benefits, alternatives were discussed and the patient provided informed consent to proceed with the above plan. I called the emergency room physician who is taking care of the patient to discuss about the above plan but the emergency room physician is not available at this time. I left my phone number with the hospital staff requesting a callback so that the emergency room physician can reach me when they become available. DEANN WERNER MD Sep 28, 2018 04:01
--- NOTE | 2018-09-28 04:28 | ERD ---
ER Documentation Chief Complaint Chief Complaint bib ra, pt stated "I need help". denies SI/HI last use of meth few hrs ago HPI 28-year-old male brought in by rescue saying "I need help ". Denies suicidal homicidal ideation. Denies auditory or visual hallucinations. Patient admits to using meth a few hours ago. ROS All systems reviewed and are negative except as per history of present illness. Medications Home Meds Active Scripts Lorazepam* (Lorazepam*) 1 Mg Tablet, 1 MG PO Q8H PRN for ANXIETY, #10 TAB Prov:MIRELLA HOFFMAN MD 07/17/18 Naproxen* (Naprosyn*) 500 Mg Tablet, 500 MG PO BID PRN for PAIN AND/OR INFLAMMATION, #30 TAB Prov:FLO AGUILAR MD 05/14/18 Allergies Allergies: Coded Allergies: No Known Allergy (Unverified , 04/13/18) PMhx/Soc History of Surgery: Yes (right arm) Anesthesia Reaction: No Hx Neurological Disorder: Yes (SEIZURE) Hx Respiratory Disorders: No Hx Cardiac Disorders: Yes (HTN) Hx Psychiatric Problems: Yes (schizoprenia, ANXIETY, PRIOR SI ATTEMPTS. ) Hx Miscellaneous Medical Probl: Yes (METH USE) Hx Alcohol Use: No Hx Substance Use: Yes (DAILY METH USE) Hx Tobacco Use: Yes Smoking Status: Current some day smoker Physical Exam Vitals Vital Signs Date Temp Pulse Resp B/P (MAP) Pulse Ox O2 O2 Flow FiO2 Time Delivery Rate 09/28/18 97.9 100 16 123/82 98 02:42 (96) Physical Exam Const: No acute distress Head: Atraumatic Eyes: Normal Conjunctiva ENT: Normal External Ears, Nose and Mouth. Neck: Full range of motion. No meningismus. Resp: Clear to auscultation bilaterally Cardio: Regular rate and rhythm, no murmurs Abd: Soft, non tender, non distended. Normal bowel sounds Skin: No petechiae or rashes Back: No midline or flank tenderness Ext: No cyanosis, or edema Neur: Awake and alert Psych: Normal Mood and Affect Result Diagram: 09/28/18 0412 Results 24 hrs Laboratory Tests Test 09/28/18 04:12 White Blood Count 6.6 10^3/ul Red Blood Count 4.53 10^6/ul Hemoglobin 13.4 g/dl Hematocrit 39.5 % Mean Corpuscular Volume 87.2 fl Mean Corpuscular Hemoglobin 29.6 pg Mean Corpuscular Hemoglobin Concent 33.9 g/dl Red Cell Distribution Width 12.6 % Platelet Count 235 10^3/UL Mean Platelet Volume 9.2 fl Immature Granulocytes % 0.200 % Neutrophils % 57.2 % Lymphocytes % 30.5 % Monocytes % 10.6 % Eosinophils % 1.2 % Basophils % 0.3 % Nucleated Red Blood Cells % 0.0 /100WBC Immature Granulocytes # 0.010 10^3/ul Neutrophils # 3.8 10^3/ul Lymphocytes # 2.0 10^3/ul Monocytes # 0.7 10^3/ul Eosinophils # 0.1 10^3/ul Basophils # 0.0 10^3/ul Nucleated Red Blood Cells # 0.0 10^3/ul Procedures/MDM Patient was evaluated by telemetry psychiatry and found to have no psychological issues at this point. I agree with this assessment. Advised patient stop using drugs. Outpatient resources have been given to the patient. home health care worker offered as well, however patient refused at this time. Departure Diagnosis: Primary Impression: Substance abuse Condition: Stable Patient Instructions: Drug Abuse MALDONADO TRUJILLO Sep 28, 2018 04:28
[2018-09-28 05:23] VITALS: BP 124/86; PULSE 65; RESP 16
== END 2018-09-28 05:31 | disposition home or self-care (01) ==
LOC: E/R 02:33
DX: F15.10 Other stimulant abuse, uncomplicated (principal); I10 Essential (primary) hypertension; F17.210 Nicotine dependence, cigarettes, uncomplicated
CPT/HCPCS: 36415; 80053; 80307; 85025; Z7502; 99283

== ENCOUNTER 2018-11-02 05:36 | Emergency (ER) | payer OTHER ==
[~2018-11-02] VITALS: Wt 74.1 kg
[2018-11-02] MEDS ORDERED: LORAZEPAM 1 MG TAB PO ONE (06:30)
[2018-11-02 06:51] VITALS: BP 0/0; PULSE 119; RESP 20
--- NOTE | 2018-11-02 08:50 | ERD ---
ER Documentation Chief Complaint Chief Complaint PT ADMITS TO USING METH YESTERDAY. CURRENTLY TACHY AND HYPERTENSIVE HPI Patient is a 28-year-old male who presents saying that he is having "trouble breathing". He said he was just discharged from the hospital. He admits to using methamphetamines yesterday. Upon review of old medical record the patient has multiple visits to the ER for similar complaints. Review of the emergency department information exchange system shows visits to 5 separate emergency departments for a total of 49 visits over the past 1 year. ROS All systems reviewed and are negative except as per history of present illness. Medications Home Meds Active Scripts Lorazepam* (Lorazepam*) 1 Mg Tablet, 1 MG PO Q8H PRN for ANXIETY, #10 TAB Prov:MIRELLA HOFFMAN MD 07/17/18 Naproxen* (Naprosyn*) 500 Mg Tablet, 500 MG PO BID PRN for PAIN AND/OR INFLAMMAT ION, #30 TAB Prov:FLO AGUILAR MD 05/14/18 Allergies Allergies: Coded Allergies: No Known Allergy (Unverified , 04/13/18) PMhx/Soc History of Surgery: Yes (right arm) Anesthesia Reaction: No Hx Neurological Disorder: Yes (SEIZURE) Hx Respiratory Disorders: No Hx Cardiac Disorders: Yes (HTN) Hx Psychiatric Problems: Yes (schizoprenia, ANXIETY, PRIOR SI ATTEMPTS. ) Hx Miscellaneous Medical Probl: Yes (METH USE) Hx Alcohol Use: No Hx Substance Use: Yes (DAILY METH USE) Hx Tobacco Use: Yes Smoking Status: Current every day smoker FmHx Family History: No diabetes Physical Exam Vitals Vital Signs Date Temp Pulse Resp B/P (MAP) Pulse Ox O2 O2 Flow FiO2 Time Delivery Rate 11/02/18 119 20 0/0 (0) 94 06:51 11/02/18 98.9 133 20 162/135 94 05:41 (144) Physical Exam Const: Anxious Head: Atraumatic Eyes: Normal Conjunctiva ENT: Normal External Ears, Nose and Mouth. Neck: Full range of motion. No meningismus. Resp: Clear to auscultation bilaterally Cardio: Regular rate and rhythm, no murmurs Abd: Soft, non tender, non distended. Normal bowel sounds Skin: No petechiae or rashes Back: No midline or flank tenderness Ext: No cyanosis, or edema Neur: Awake and alert Psych: Anxious but no suicidal or homicidal ideation Results 24 hrs Current Medications Medications Dose Sig/Isha Start Time Status Last (Trade) Ordered Route PRN Stop Time Admin Dose Reason Admin Lorazepam 1 mg ONCE ONCE 11/02/18 DC 11/02/18 (Ativan) PO 06:30 06:40 11/02/18 06:31 Procedures/MDM Patient is a 28-year-old male presents with acute panic attack. He will be given 1 dose of Ativan by mouth and will be discharged. I do not believe he requires further work-up or admission to the hospital at this time. I believe his tachycardia is likely related to drug abuse. The patient needs to stop using methamphetamine. The patient can return for any worsening symptoms. Departure Diagnosis: Primary Impression: Methamphetamine abuse Additional Impression: Panic attack Condition: Stable Patient Instructions: Understanding Methamphetamine Abuse and Addiction Referrals: [facility] YOU HAVE RECEIVED A MEDICAL SCREENING EXAM AND THE RESULTS INDICATE THAT YOU DO NOT HAVE A CONDITION THAT REQUIRES URGENT TREATMENT IN THE EMERGENCY DEPARTMENT. FURTHER EVALUATION AND TREATMENT OF YOUR CONDITION CAN WAIT UNTIL YOU ARE SEEN IN YOUR DOCTORS OFFICE WITHIN THE NEXT 1-2 DAYS. IT IS YOUR RESPONSIBILITY TO MAKE AN APPOINTMENT FOR FOLOW-UP CARE. IF YOU HAVE A PRIMARY DOCTOR --you should call your primary doctor and schedule an appointment IF YOU DO NOT HAVE A PRIMARY DOCTOR YOU CAN CALL OUR PHYSICIAN REFERRAL HOTLINE AT IF YOU CAN NOT AFFORD TO SEE A PHYSICIAN YOU CAN CHOSE FROM THE FOLLOWING [facility] [address] [facility] [place]. [facility] [address] [facility] [facility] [address] [facility] [facility] [address] [facility] [facility] [address]. [facility]. [address] Additional Instructions: Call your primary care doctor TOMORROW for an appointment during the next 1-2 days.See the doctor sooner or return here if your condition worsens before your appointment time. SOLIS CANO MD November 02, 2018 08:50
== END 2018-11-02 06:59 | disposition home or self-care (01) ==
LOC: E/R 05:36
DX: F15.10 Other stimulant abuse, uncomplicated (principal); F41.9 Anxiety disorder, unspecified; F17.210 Nicotine dependence, cigarettes, uncomplicated; I10 Essential (primary) hypertension
CPT/HCPCS: Z7502; Z7610; 99283

== ENCOUNTER 2018-11-30 15:05 | Emergency (ER) | payer OTHER ==
[~2018-11-30] VITALS: Wt 76.0 kg
[2018-11-30 15:09] VITALS: BP 128/91; PULSE 91; RESP 18
[2018-11-30] MEDS ORDERED: IBUP-1542 PO (17:56)
--- NOTE | 2018-11-30 18:01 | ERD ---
ER Documentation Chief Complaint Chief Complaint WANTS TO HAVE RIGHT ARM CHECK UP, LST IV DRUG USE A MONTH AGO HPI This is a 28-year-old male with a history of polysubstance abuse who presents ED seeking to have right arm checked. Patient has some mild pain along the right dorsal arm and wants to have it checked. feels like his veins feel funny. Denies any fall or injury. Patient states that he has not used IV drugs in a very long time over 1 month. Admits to using methamphetamine via smoking root last night. Denies any fevers, chills, chest pain, shortness breath, trouble breathing, tingling, numbness, lack sensation., ROS All systems reviewed and are negative except as per history of present illness. Medications Home Meds Active Scripts Ibuprofen* (Motrin*) 600 Mg Tab, 600 MG PO Q6, #30 TAB Prov:YANNI NAVARRO PA-C 11/30/18 Lorazepam* (Lorazepam*) 1 Mg Tablet, 1 MG PO Q8H PRN for ANXIETY, #10 TAB Prov:MIRELLA HOFFMAN MD 07/17/18 Naproxen* (Naprosyn*) 500 Mg Tablet, 500 MG PO BID PRN for PAIN AND/OR INFLAMMATION, #30 TAB Prov:FLO AGUILAR MD 05/14/18 Allergies Allergies: Coded Allergies: No Known Allergy (Unverified , 04/13/18) PMhx/Soc History of Surgery: Yes (right arm: 'doesn't want to talk about it') Anesthesia Reaction: No Hx Neurological Disorder: Yes (SEIZURE) Hx Respiratory Disorders: No Hx Cardiac Disorders: Yes (HTN) Hx Psychiatric Problems: Yes (schizoprenia, ANXIETY, PRIOR SI ATTEMPTS. ) Hx Miscellaneous Medical Probl: Yes (METH USE) Hx Alcohol Use: No Hx Substance Use: Yes (DAILY METH USE) Hx Tobacco Use: Yes Smoking Status: Current every day smoker FmHx Family History: No diabetes Physical Exam Vitals Vital Signs Date Temp Pulse Resp B/P (MAP) Pulse Ox O2 O2 Flow FiO2 Time Delivery Rate 11/30/18 98.1 91 18 128/91 99 15:09 (103) Physical Exam Const: No acute distress Head: Atraumatic Eyes: Normal Conjunctiva ENT: Normal External Ears, Nose and Mouth. Neck: Full range of motion. No meningismus. Resp: Clear to auscultation bilaterally Cardio: Regular rate and rhythm, no murmurs Back: No midline or flank tenderness Ext: No cyanosis, or edema Upper Extremity -right Skin: No laceration, or evidence of external trauma Compartments: Soft Motor: Full active range of motion shoulder/elbow/wrist/hand Sensation: Intact shoulder/pinky/middle finger/thumb web space Bones: Nontender humerus/elbow/forearm/wrist/hand Snuffbox: Nontender Joints: No effusion Pulses/Perfusion: 2+ radial, Capillary refill < 2 seconds Neur: Awake and alert Psych: Anxious Procedures/MDM ER COURSE: The patient was stable throughout ED course. I kept the patient and/or family informed of laboratory and diagnostic imaging results throughout the emergency room course. The patient was promptly evaluated and a treatment plan was devised based on H&P and other data. This plan was discussed with the patient who agreed and had no further questions or concerns prior to discharge. MEDICAL DECISION MAKING: This is a 28-year-old male with a history of polysubstance abuse who presents ED to have right arm looked up. Patient has not injected arm in a long time but feels like his veins feel funny. Physical examination is unremarkable. History and physical examination other data not consistent with emergent processes including but not limited to fracture, dislocation, tendon rupture, ischemia, neurovascular injury, compartment syndrome, septic joint, avascular necrosis, osteomyelitis, necrotizing fasciitis, septic joint, septic arthritis, or other emergent conditions. Patient's vitals are stable and can be managed outpatient with close follow-up. Advised patient to follow-up with primary care in the next 48 hours. Return to ED with any worsening symptoms. DISPOSITION PLAN: We discussed follow up with the patient's primary care doctor within 24 to 48 hours. Patient counseled regarding my diagnostic impression and care plan. Prior to discharge all questions answered. Pt agrees with treatment plan and understands strict return precautions. Precautionary instructions provided including instructions to return to the ER if not improving or for any worsening or changing symptoms or concerns. ExitCare instructions provided. Prior to discharge, patients vital signs have been reviewed SPECIALIST FOLLOW UP RECOMMENDED: None Patient has been advised to follow up with primary care in 1-2 days. Disclaimer: Inadvertent spelling and grammatical errors are likely due to EHR/dictation software use and do not reflect on the overall quality of patient care. Also, please note that the electronic time recorded on this note does not necessarily reflect the actual time of the patient encounter. Departure Diagnosis: Primary Impression: Pain of right arm Additional Impressions: Methamphetamine abuse Polysubstance abuse Condition: Stable Patient Instructions: Understanding Methamphetamine Abuse and Addiction Referrals: [facility] YOU HAVE RECEIVED A MEDICAL SCREENING EXAM AND THE RESULTS INDICATE THAT YOU DO NOT HAVE A CONDITION THAT REQUIRES URGENT TREATMENT IN THE EMERGENCY DEPARTMENT. FURTHER EVALUATION AND TREATMENT OF YOUR CONDITION CAN WAIT UNTIL YOU ARE SEEN IN YOUR DOCTORS OFFICE WITHIN THE NEXT 1-2 DAYS. IT IS YOUR RESPONSIBILITY TO MAKE AN APPOINTMENT FOR FOLOW-UP CARE. IF YOU HAVE A PRIMARY DOCTOR --you should call your primary doctor and schedule an appointment IF YOU DO NOT HAVE A PRIMARY DOCTOR YOU CAN CALL OUR PHYSICIAN REFERRAL HOTLINE AT IF YOU CAN NOT AFFORD TO SEE A PHYSICIAN YOU CAN CHOSE FROM THE FOLLOWING [facility] [address] [facility] [address] [facility] [address] [facility] [address] [facility] [address] [facility]. [facility] [address] Additional Instructions: Patient advised to return to the ED immediately for new or worsening symptoms. Patient advised to follow up with primary care provider in the next 24-48 hours. Patient verbalized understanding and agrees with treatment plan and course of action. If patient has no primary care they may follow up with one of the community cli nics listed on the following page or one of the options listed below [facility] [address] [place] [address] or [facility] [address] [place] [address] or [facility] [address] [place] [address] YANNI NAVARRO PA-C Nov 30, 2018 18:01
[2018-12-01] MEDS ORDERED: QUET100T32 PO (02:39)
== END 2018-11-30 18:08 | disposition home or self-care (01) ==
LOC: E/R 15:05
DX: M79.601 Pain in right arm (principal); I10 Essential (primary) hypertension; F17.210 Nicotine dependence, cigarettes, uncomplicated
CPT/HCPCS: 99282

== ENCOUNTER 2018-11-30 22:34 | Emergency (ER) | payer OTHER ==
[~2018-11-30] VITALS: Ht 177.8 cm; Wt 76.0 kg
[~2018-11-30 22:34] MED LIST changes: +IBUP-1542 PO
[2018-11-30 22:37] VITALS: Ht 177.8 cm; Wt 76.0 kg
[2018-12-01] MEDS ORDERED: KETOROLAC 15 MG INJ IM STA (01:33)
[2018-12-01] MEDS ORDERED: DIPHENHYDRAMINE 25 MG CAP PO ONE (02:00)
[2018-12-01] MEDS ORDERED: METOCLOPRAMIDE 10 MG TAB PO ONE (02:00)
[2018-12-01] MEDS ORDERED: LORAZEPAM 2 MG INJ IM ONE (02:00)
[2018-12-01] MEDS ORDERED: QUET100T32 PO (02:39)
--- NOTE | 2018-12-01 02:58 | ERD ---
ER Documentation Chief Complaint Chief Complaint ANAHI-RA cooney of "fall" today; R rib pain, throat pressure HPI This is a 28-year-old male with a past medical history of hypertension, seizure s, schizoaffective disorder, chronic daily substance abuse including methamphetamine who is presenting again in the emergency department for multiple complaints. The patient's primary complaint when I entered the room was a mild to moderate waxing and waning throbbing pulsating frontal bilateral headache with photophobia and nausea. The patient does not endorse a stiff neck. He does not report a personal or family history of subarachnoid hemorrhage or cerebral aneurysm. It is not the worst headache of his life. The patient reports that he fell today. He cannot say if he hit his head or not. He does endorse right arm and right rib pain. According to the past medical record, the patient presented to our emergency department earlier today for right arm pain as well. The patient does not have any focal deficits. He does not have any weakness numbers are tingling to the face or extremities. The patient denies feeling sick recently. The patient denies fever or chills. The patient does not endorse neck or back pain. The patient denies lightheadedness or dizziness. The patient has had no chest pain or trouble breathing. The patient denies vomiting. The patient denies abdominal pain. The patient denies changes to bowel movements or urination. ROS All systems reviewed and are negative except as per history of present illness. Medications Home Meds Active Scripts Ibuprofen* (Motrin*) 600 Mg Tab, 600 MG PO Q6, #30 TAB Prov:YANNI NAVARRO PA-C 11/30/18 Reported Medications Quetiapine Fumarate* (Quetiapine Fumarate*) 100 Mg Tablet, 100 MG PO HS, TAB 12/01/18 Discontinued Scripts Lorazepam* (Lorazepam*) 1 Mg Tablet, 1 MG PO Q8H PRN for ANXIETY, #10 TAB Prov:MIRELLA HOFFMAN MD 07/17/18 Naproxen* (Naprosyn*) 500 Mg Tablet, 500 MG PO BID PRN for PAIN AND/OR INFLAMMATION, #30 TAB Prov:FLO AGUILAR MD 05/14/18 Allergies Allergies: Coded Allergies: No Known Allergy (Unverified , 04/13/18) PMhx/Soc History of Surgery: Yes (right arm: 'doesn't want to talk about it') Anesthesia Reaction: No Hx Neurological Disorder: Yes (SEIZURE) Hx Respiratory Disorders: No Hx Cardiac Disorders: Yes (HTN) Hx Psychiatric Problems: Yes (schizoprenia, ANXIETY, PRIOR SI ATTEMPTS. ) Hx Miscellaneous Medical Probl: No Hx Alcohol Use: No Hx Substance Use: Yes (DAILY METH USE) Hx Tobacco Use: Yes Smoking Status: Current every day smoker FmHx Family History: No diabetes Physical Exam Vitals Vital Signs Date Temp Pulse Resp B/P (MAP) Pulse Ox O2 O2 Flow FiO2 Time Delivery Rate 12/01/18 99 16 148/74 100 Room Air 00:15 (98) 11/30/18 98.3 104 22 142/74 99 22:37 (96) Physical Exam Const: No apparent distress, well-developed, well-nourished Head: Normocephalic, Atraumatic Eyes: Normal Conjunctiva. Extraocular movements intact. Pupils equal, round and reactive to light ENT: Normal External Ears, Nose and Mouth. Neck: Full range of motion. No meningismus. Resp: Clear to auscultation bilaterally, No wheezes, rales or rhonchi Cardio: Regular rate and rhythm. No murmurs, rubs or gallops Abd: Soft, non tender, non distended. Normal bowel sounds Skin: No petechiae or rashes Back: No midline tenderness. No CVA tenderness Ext: No cyanosis, or edema Neur: Awake and alert, oriented 4. Cranial nerves intact. No facial droop. Normal strength, sensation and coordination. Psych: Odd affect, agitation, no suicidal or homicidal ideations, no auditory or visual hallucinations. Results 24 hrs Current Medications Medications Dose Sig/Isha Start Time Status Last (Trade) Ordered Route PRN Stop Time Admin Dose Reason Admin Lorazepam 1 mg ONCE ONCE 12/01/18 DC 12/01/18 (Ativan) IM 02:00 01:51 12/01/18 02:01 Ketorolac 15 mg ONCE STAT 12/01/18 DC 12/01/18 Tromethamine IM 01:33 01:51 (Toradol) 12/01/18 01:35 10 mg ONCE ONCE 12/01/18 DC 12/01/18 Metoclopramid PO 02:00 01:54 e HCl 12/01/18 02:01 (Reglan) 25 mg ONCE ONCE 12/01/18 DC 12/01/18 Diphenhydrami PO 02:00 01:51 ne HCl 12/01/18 02:01 (Benadryl) Procedures/[facility] The patient's presentation warrants further investigation. Previous medical records, if available, were reviewed. IMAGING Imaging and Radiology interpretation reviewed. CT head FINDINGS: The ventricles and cortical sulci are prominent consistent with mild cerebral volume loss. There are no areas of abnormal attenuation within the brain parenchyma. There is no mass effect or midline shift. There is no i ntracranial hemorrhage or abnormal extra-axial collection. The calvarium is intact. There are fractures of the right lateral orbital wall and zygoma. There is a nondisplaced fracture of the right zygomatic arch. Visualized paranasal sinuses and mastoid air cells are clear. IMPRESSION: No acute intracranial abnormality identified. Mild cerebral volume loss. Fractures of the right lateral orbital wall and zygoma. Nondisplaced fracture of the right zygomatic arch. Electronically viewed and signed by .Wally Traylor MD, on 12/01/2018 02:32 TREATMENT/DISPOSITION The patient presents for multiple complaints. His symptoms are currently consistent with anxiousness and agitation associated with methamphetamine abuse. The patient does admit to using methamphetamine. I do not feel that UDS is required at this time. Given that the patient does use sympathomimetic drugs, the patient has had an increased risk of subarachnoid hemorrhage. The patient reports that his headache started when he arrived to the emergency department, so he is within 6 hours of onset of the headache. The patient did not endorse trauma or injury, but there are facial fractures which are likely the nondisplaced etiology of his headache today. Differential diagnosis also includes migraine, tension headache, cluster headache. The patient has no focal deficits. The neurologic exam is reassuring. I have decreased suspicion for cerebral ischemia. There was no trauma or injury. There is no personal or family history of cerebral aneurysm. This is not the worst headache of the patient's life. It was not acutely severe. It is been progressive in nature. I have decreased suspicion for SAH or other ICH. I have low suspicion for temporal arteritis, cavernous venous thrombosis, subdural hematoma, epidural hematoma, meningitis. The patient was treated with Ativan to help counter the sympathomimetic effects of methamphetamine. The patient was also given Toradol, Reglan and Benadryl to help with his headache. The patient does have a history of schizoaffective disorder. He is not currently suicidal or homicidal. He does not endorse auditory or visual hallucinations. The patient is able to hold a conversation. Though he does have an odd affect, I do not feel that he is a danger to himself or others. I do not feel the patient requires further assessment from a psychiatric perspective. DISCHARGE Upon reevaluation of the patient, symptoms have improved. No emergent diagnoses were identified. At this time, I feel that the patient stable for discharge. The patient was instructed to follow-up with a primary care physician in 1-3 days. The patient will be given strict precautions with which to return to the emergency department. Prescriptions: None Disclaimer: Inadvertent spelling and grammatical errors are likely due to EHR/dictation software use and do not reflect on the overall quality of patient care. Note that the electronic time recorded on this note does not necessarily reflect the actual time of the patient encounter. Departure Diagnosis: Primary Impression: Facial fracture Encounter type: initial encounter Facial bone/location: unspecified facial bone Fracture type: closed Qualified Codes: S02.92XA - Unspecified fracture of facial bones, initial encounter for closed fracture Additional Impressions: Head trauma Encounter type: initial encounter Qualified Codes: S09.90XA - Unspecified injury of head, initial encounter Headache Headache type: unspecified Headache chronicity pattern: acute headache Intractability: not intractable Qualified Codes: R51 - Headache Methamphetamine abuse Agitation Fall Encounter type: subsequent encounter Qualified Codes: W19.XXXD - Unspecified fall, subsequent encounter Condition: Stable Patient Instructions: Facial Fracture, Head Trauma (Traumatic Brain Injury), Self-Care for Headaches, Understanding Methamphetamine Abuse and Addiction Additional Instructions: Thank you for for coming to [facility] for your care today. Please ask your nurse or provider if you have questions about your care today and do not leave until all your questions have been answered. Please use any medications given as directed and follow-up with your doctor (or the doctor you were referred to) in the next 1-3 days. If you do not have a primary care doctor you may follow up at the [facility] or [facility] (listed below). You may also use motrin and tylenol as needed for fever and/or pain unless instructed otherwise by your provider or nurse. Indications for more urgent fo llow-up have been discussed, but you may return to the Emergency Department at ANY time for any worrisome or worsening symptoms. If you have abdominal pain, please know that no test or exam you received is perfect and you should follow up within 8 hours for continued pain. If you had any imaging studies today, such as an X-Ray or CT Scan, these studies will be reviewed later by a radiologist. You will be called if there are important findings that were not identified today, so make sure the contact information you provided at registration is correct. If you received any narcotic pain control medicine today, such as Vicodin, Morph ine or Dilaudid, your coordination and judgment may be affected for a number of hours. Please do not drive or operate heavy machinery, and you may want someone to assist you at home. If you were given a prescription for narcotic medication, be aware that it is very addictive- use sparingly and only if necessary. PLEASE SEEK FURTHER EVALUATION AND MANAGEMENT AT YOUR DOCTORS OFFICE WITHIN THE NEXT 1-3 DAYS. IT IS YOUR RESPONSIBILITY TO MAKE AN APPOINTMENT FOR FOLOW-UP CARE. IF YOU HAVE A PRIMARY DOCTOR, PLEASE CALL THEIR OFFICE TO SCHEDULE AN APPOINTMENT FOR FOLLOW UP. IF YOU DO NOT HAVE A PRIMARY DOCTOR YOU CAN CALL OUR PHYSICIAN REFERRAL HOTLINE AT IF YOU CAN NOT AFFORD TO SEE A PHYSICIAN YOU CAN CHOSE FROM THE FOLLOWING [facility] CLINICS: [facility] [address] [facility]. [facility] [address] [facility]. [facility] [address] [facility]. [facility] [address] [facility] [address] [facility]. [facility]. [address] HI SNYDER MD Dec 01, 2018 02:58
[2018-12-01 03:24] VITALS: BP 137/69; PULSE 90; RESP 20
== END 2018-12-01 03:25 | disposition home or self-care (01) ==
LOC: E/R 22:34
DX: S02.92XA Unspecified fracture of facial bones, initial encounter for closed fracture (principal); F15.10 Other stimulant abuse, uncomplicated; I10 Essential (primary) hypertension; F17.210 Nicotine dependence, cigarettes, uncomplicated; R51 Headache; W19.XXXA Unspecified fall, initial encounter; Y92.9 Unspecified place or not applicable
CPT/HCPCS: 70450; 96372; J1885; J2060; Z7502; Z7610

== ENCOUNTER 2018-12-01 12:07 | Emergency (ER) | payer OTHER ==
[~2018-12-01] VITALS: Ht 177.8 cm; Wt 73.9 kg
[~2018-12-01 12:07] MED LIST changes: +QUET100T32 PO
[2018-12-01 12:32] VITALS: Ht 177.8 cm; Wt 73.9 kg
[2018-12-01] MEDS ORDERED: ACETAMINOPHEN 325 MG TAB PO ONE (13:30)
[2018-12-01 13:43] VITALS: BP 128/72; PULSE 78; RESP 18
--- NOTE | 2018-12-01 14:19 | ERD ---
ER Documentation Chief Complaint Chief Complaint headaches from recent falls. pt states falling with head injury past 2 days HPI Patient is a 28-year-old male with a history of schizoaffective disorder and hypertension who presents after a fall. He said that yesterday he fell and hit his head. He said that his ears are hurting and he has shortness of breath. He took the bus here today. He has had no treatment yet today. He was seen in the emergency department last night and had a CT scan of the brain which showed no intracranial hemorrhage. Upon review of old medical records the patient has multiple visits for various complaints. Review of the emergency department information exchange system shows visits to 5 separate emergency departments for a total of 46 visits over the past 1 year. He does not currently have a primary doctor. ROS All systems reviewed and are negative except as per history of present illness. Medications Home Meds Active Scripts Ibuprofen* (Motrin*) 600 Mg Tab, 600 MG PO Q6, #30 TAB Prov:YANNI NAVARRO PA-C 11/30/18 Reported Medications Quetiapine Fumarate* (Quetiapine Fumarate*) 100 Mg Tablet, 100 MG PO HS, TAB 12/01/18 Discontinued Scripts Lorazepam* (Lorazepam*) 1 Mg Tablet, 1 MG PO Q8H PRN for ANXIETY, #10 TAB Prov:MIRELLA HOFFMAN MD 07/17/18 Naproxen* (Naprosyn*) 500 Mg Tablet, 500 MG PO BID PRN for PAIN AND/OR INFLAMMATION, #30 TAB Prov:FLO AGUILAR MD 05/14/18 Allergies Allergies: Coded Allergies: No Known Allergy (Unverified , 12/01/18) PMhx/Soc History of Surgery: Yes (right arm: 'doesn't want to talk about it') Anesthesia Reaction: No Hx Neurological Disorder: Yes (SEIZURE) Hx Respiratory Disorders: No Hx Cardiac Disorders: Yes (HTN) Hx Psychiatric Problems: Yes (schizoprenia, ANXIETY, PRIOR SI ATTEMPTS. ) Hx Miscellaneous Medical Probl: No Hx Alcohol Use: No Hx Substance Use: Yes (DAILY METH USE) Hx Tobacco Use: Yes Smoking Status: Current every day smoker FmHx Family History: No diabetes Physical Exam Vitals Vital Signs Date Temp Pulse Resp B/P (MAP) Pulse Ox O2 O2 Flow FiO2 Time Delivery Rate 12/01/18 98.0 78 18 128/72 98 Room Air 13:43 (90) 12/01/18 97.7 101 18 132/72 98 12:32 (92) Physical Exam Const: No acute distress Head: Atraumatic Eyes: Normal Conjunctiva ENT: Normal External Ears, Nose and Mouth. Neck: Full range of motion. No meningismus. Resp: Clear to auscultation bilaterally Cardio: Regular rate and rhythm, no murmurs Abd: Soft, non tender, non distended. Normal bowel sounds Skin: No petechiae or rashes Back: No midline or flank tenderness Ext: No cyanosis, or edema Neur: Awake and alert Psych: Normal Mood and Affect Results 24 hrs Current Medications Medications Dose Sig/Isha Start Time Status Last (Trade) Ordered Route PRN Stop Time Admin Dose Reason Admin 650 mg ONCE ONCE 12/01/18 DC 12/01/18 Acetaminophen PO 13:30 13:32 (Tylenol 12/01/18 13:31 Tab) Procedures/MDM Patient is a 28-year-old male who presents with headache. I believe he is exhibiting drug-seeking behavior and did request a shot of IV pain medicine and Ativan. I told him I would not give him these medications. He was given Tylenol. He can return for any worsening symptoms. I believe outpatient management is appropriate but the patient will need to follow-up closely with his primary doctor within 24 to 48 hours. The patient understands the plan and is okay for discharge. Departure Diagnosis: Primary Impression: Headache Headache type: unspecified Headache chronicity pattern: acute headache Intractability: not intractable Qualified Codes: R51 - Headache Condition: Fair Patient Instructions: Self-Care for Headaches Referrals: [facility] YOU HAVE RECEIVED A MEDICAL SCREENING EXAM AND THE RESULTS INDICATE THAT YOU DO NOT HAVE A CONDITION THAT REQUIRES URGENT TREATMENT IN THE EMERGENCY DEPARTMENT. FURTHER EVALUATION AND TREATMENT OF YOUR CONDITION CAN WAIT UNTIL YOU ARE SEEN IN YOUR DOCTORS OFFICE WITHIN THE NEXT 1-2 DAYS. IT IS YOUR RESPONSIBILITY TO MAKE AN APPOINTMENT FOR FOLOW-UP CARE. IF YOU HAVE A PRIMARY DOCTOR --you should call your primary doctor and schedule an appointment IF YOU DO NOT HAVE A PRIMARY DOCTOR YOU CAN CALL OUR PHYSICIAN REFERRAL HOTLINE AT IF YOU CAN NOT AFFORD TO SEE A PHYSICIAN YOU CAN CHOSE FROM THE FOLLOWING [facility] [address] [facility]. [facility] [address] [facility]. [facility] [address] [facility]. [facility] [address] [facility]. [facility] [address] [facility]. [facility] [address] Additional Instructions: Call your primary care doctor TOMORROW for an appointment during the next 1 WEEK.Tell the insole stiffener that you were referred from this facility.See the doctor sooner or return here if your condition worsens before your appointment time. SOLIS CANO MD Dec 01, 2018 14:19
== END 2018-12-01 13:45 | disposition home or self-care (01) ==
LOC: E/R 12:07
DX: R51 Headache (principal); I10 Essential (primary) hypertension; F17.210 Nicotine dependence, cigarettes, uncomplicated; R40.2142 Coma scale, eyes open, spontaneous, at arrival to emergency department; R40.2362 Coma scale, best motor response, obeys commands, at arrival to emergency department; R40.2252 Coma scale, best verbal response, oriented, at arrival to emergency department
CPT/HCPCS: Z7502; Z7610; 99282

== ENCOUNTER 2018-12-03 11:09 | Emergency (ER) | payer OTHER ==
[~2018-12-03] VITALS: Wt 75.0 kg
[~2018-12-03 11:09] MED LIST changes: -LORA1TAB PO; -NAPR-985 PO
--- NOTE | 2018-12-03 12:33 | ERD ---
ER Documentation Chief Complaint Chief Complaint L RIB PAIN NON TRAUMTIC. SUDDEN ONSET 20 MIN. NO DISTRESS. NO SOB HPI 28-year-old male with a history of schizoaffective disorder and hypertension He was seen in the emergency department last night and had a CT scan of the brain which showed no intracranial hemorrhage. Upon review of old medical records the patient has multiple visits for various complaints. Review of the emergency department information exchange system shows visits to 5 separate emergency departments for a total of 46 visits over the past 1 year. He does not currently have a primary doctor. ROS All systems reviewed and are negative except as per history of present illness. Medications Home Meds Active Scripts Ibuprofen* (Motrin*) 600 Mg Tab, 600 MG PO Q6, #30 TAB Prov:YANNI NAVARRO PA-C 11/30/18 Reported Medications Quetiapine Fumarate* (Quetiapine Fumarate*) 100 Mg Tablet, 100 MG PO HS, TAB 12/01/18 Discontinued Scripts Lorazepam* (Lorazepam*) 1 Mg Tablet, 1 MG PO Q8H PRN for ANXIETY, #10 TAB Prov:MIRELLA HOFFMAN MD 07/17/18 Naproxen* (Naprosyn*) 500 Mg Tablet, 500 MG PO BID PRN for PAIN AND/OR INFLAMMATION, #30 TAB Prov:FLO AGUILAR MD 05/14/18 Allergies Allergies: Coded Allergies: No Known Allergy (Unverified , 12/03/18) PMhx/Soc History of Surgery: Yes (right arm: 'doesn't want to talk about it') Anesthesia Reaction: No Hx Neurological Disorder: Yes (SEIZURE) Hx Respiratory Disorders: No Hx Cardiac Disorders: Yes (HTN) Hx Psychiatric Problems: Yes (schizoprenia, ANXIETY, PRIOR SI ATTEMPTS. ) Hx Miscellaneous Medical Probl: No Hx Alcohol Use: No Hx Substance Use: Yes (DAILY METH USE) Hx Tobacco Use: Yes Smoking Status: Current every day smoker Physical Exam Vitals Vital Signs Date Temp Pulse Resp B/P (MAP) Pulse Ox O2 O2 Flow FiO2 Time Delivery Rate 12/03/18 98.2 78 12 120/75 100 Room Air 16:32 (90) 12/03/18 98.2 99 18 133/79 99 Room Air 14:00 (97) 12/03/18 98.2 80 18 120/84 98 11:12 (96) Physical Exam Const: No acute distress Head: Atraumatic Eyes: Normal Conjunctiva ENT: Normal External Ears, Nose and Mouth. Neck: Full range of motion. No meningismus. Resp: Clear to auscultation bilaterally Cardio: Regular rate and rhythm, no murmurs Abd: Soft, non tender, non distended. Normal bowel sounds Skin: No petechiae or rashes Back: No midline or flank tenderness Ext: No cyanosis, or edema Neur: Awake and alert Psych: Normal Mood and Affect Results 24 hrs Current Medications Medications Dose Sig/Isha Start Time Status Last (Trade) Ordered Route PRN Stop Time Admin Dose Reason Admin Lorazepam 2 mg ONCE ONCE 12/03/18 DC 12/03/18 (Ativan) PO 13:00 12:57 12/03/18 13:01 Procedures/MDM DOCUMENTS REVIEWED: ED nurse, prior records L ED COURSE: [] REEXAMINATION/REEVALUATION: Time: [] MEDICAL DECISION MAKING: []. Stable for discharge with precautionary instructions and outpatient follow-up as counseled. Counseled patient regarding diagnostic workup, diagnosis and need for followup. Understands to return to ED if symptoms recur, worsen or any other concerns. Departure Diagnosis: Primary Impression: Acute anxiety Additional Impressions: Methamphetamine abuse History of schizoaffective disorder Condition: Stable NIKOLAS CUELLAR MD Dec 03, 2018 12:33
[2018-12-03] MEDS ORDERED: LORAZEPAM 1 MG TAB PO ONE (13:00)
[2018-12-03 17:30] VITALS: BP 131/71; PULSE 78; RESP 14
== END 2018-12-03 18:00 | disposition home or self-care (01) ==
LOC: E/R 11:09
DX: F41.9 Anxiety disorder, unspecified (principal); I10 Essential (primary) hypertension; F17.210 Nicotine dependence, cigarettes, uncomplicated; F15.10 Other stimulant abuse, uncomplicated; Z86.59 Personal history of other mental and behavioral disorders
CPT/HCPCS: Z7502; Z7610; 99283

== ENCOUNTER 2018-12-17 17:35 | Emergency (ER) | payer OTHER ==
[~2018-12-17] VITALS: Wt 80.0 kg
[2018-12-17 17:41] VITALS: BP 150/90; PULSE 102; RESP 20
[2018-12-17] MEDS ORDERED: IBUP-1542 PO (19:51)
--- NOTE | 2018-12-17 23:02 | ERD ---
ER Documentation Chief Complaint Chief Complaint left rib pain nwith pain on inspiration intermittent for a few wks HPI Patient is a 28-year-old male who presents for shortness of breath. He feels tightness in the left side of his rib cage. He denies trauma. He said that it started just prior to going through some personal stuff. He has had no suicidal or homicidal ideation. He is well-known to myself and to our staff and upon review of old medical records has multiple visits. Review of the emergency department information exchange system shows visits to multiple different emergency departments as well. ROS All systems reviewed and are negative except as per history of present illness. Medications Home Meds Active Scripts Ibuprofen* (Motrin*) 600 Mg Tab, 600 MG PO Q6, #10 TAB Prov:SOLIS CANO MD 12/17/18 Ibuprofen* (Motrin*) 600 Mg Tab, 600 MG PO Q6, #30 TAB Prov:YANNI NAVARRO PA-C 11/30/18 Reported Medications Quetiapine Fumarate* (Quetiapine Fumarate*) 100 Mg Tablet, 100 MG PO HS, TAB 12/01/18 Allergies Allergies: Coded Allergies: No Known Allergy (Unverified , 12/03/18) PMhx/Soc History of Surgery: Yes (right arm: 'doesn't want to talk about it') Anesthesia Reaction: No Hx Neurological Disorder: Yes (SEIZURE) Hx Respiratory Disorders: No Hx Cardiac Disorders: Yes (HTN) Hx Psychiatric Problems: Yes (schizoprenia, ANXIETY, PRIOR SI ATTEMPTS. ) Hx Miscellaneous Medical Probl: No Hx Alcohol Use: No Hx Substance Use: Yes (DAILY METH USE) Hx Tobacco Use: Yes Smoking Status: Current every day smoker FmHx Family History: No diabetes Physical Exam Vitals Vital Signs Date Temp Pulse Resp B/P (MAP) Pulse Ox O2 O2 Flow FiO2 Time Delivery Rate 12/17/18 98.4 102 20 150/90 98 17:41 (110) Physical Exam Const: No acute distress Head: Atraumatic Eyes: Normal Conjunctiva ENT: Normal External Ears, Nose and Mouth. Neck: Full range of motion. No meningismus. Resp: Clear to auscultation bilaterally Cardio: Regular rate and rhythm, no murmurs Abd: Soft, non tender, non distended. Normal bowel sounds Skin: No petechiae or rashes Back: No midline or flank tenderness Ext: No cyanosis, or edema Neur: Awake and alert Psych: No homicidal or suicidal ideation Procedures/MDM Patient is a 28-year-old male who presents with shortness of breath. Lung sounds are normal. I do not believe the patient requires further work-up or admission of the hospital at this time. He will be given ibuprofen for pain. He can return for any worsening symptoms. Departure Diagnosis: Primary Impression: SOB (shortness of breath) Additional Impression: Malingering Condition: Fair Patient Instructions: Dyspnea Referrals: [facility] YOU HAVE RECEIVED A MEDICAL SCREENING EXAM AND THE RESULTS INDICATE THAT YOU DO NOT HAVE A CONDITION THAT REQUIRES URGENT TREATMENT IN THE EMERGENCY DEPARTMENT. FURTHER EVALUATION AND TREATMENT OF YOUR CONDITION CAN WAIT UNTIL YOU ARE SEEN IN YOUR DOCTORS OFFICE WITHIN THE NEXT 1-2 DAYS. IT IS YOUR RESPONSIBILITY TO MAKE AN APPOINTMENT FOR FOLOW-UP CARE. IF YOU HAVE A PRIMARY DOCTOR --you should call your primary doctor and schedule an appointment IF YOU DO NOT HAVE A PRIMARY DOCTOR YOU CAN CALL OUR PHYSICIAN REFERRAL HOTLINE AT IF YOU CAN NOT AFFORD TO SEE A PHYSICIAN YOU CAN CHOSE FROM THE FOLLOWING [facility] [address] [facility]. [facility] [address] [facility] [address] [facility] [facility] [address] [facility]. [facility] [address] [facility]. [facility]. [address] Additional Instructions: Call your primary care doctor TOMORROW for an appointment during the next 1-2 days.See the doctor sooner or return here if your condition worsens before your appointment time. SOLIS CANO MD Dec 17, 2018 23:02
== END 2018-12-17 20:10 | disposition home or self-care (01) ==
LOC: E/R 17:35
DX: R06.02 Shortness of breath (principal); I10 Essential (primary) hypertension; F17.210 Nicotine dependence, cigarettes, uncomplicated; Z72.89 Other problems related to lifestyle
CPT/HCPCS: 99282

== ENCOUNTER 2019-01-11 15:57 | Emergency (ER) | payer OTHER ==
[~2019-01-11] VITALS: Ht 177.8 cm; Wt 81.8 kg
[2019-01-11 16:10] VITALS: Ht 177.8 cm; Wt 81.8 kg
--- NOTE | 2019-01-11 16:11 | ERD ---
ER Documentation Chief Complaint Chief Complaint left chest wall pain HPI The patient is a 28-year-old male, presenting to the ER because he tripped and fell prior to arrival, complains of left chest wall pain, denies head injury, headache, neck pain, chest pain, dyspnea, abdominal pain, vomiting, dysuria, diarrhea. He does not amphetamine regularly, denies suicidal/homicidal ideation Past medical history: Hypertension, schizoaffective disorder, anxiety, depression Past surgical history: None ROS All systems reviewed and are negative except as per history of present illness. Medications Home Meds Active Scripts Ibuprofen* (Motrin*) 600 Mg Tab, 600 MG PO Q6H PRN for PAIN AND OR ELEVATED TEMP, #20 TAB Prov:JEIMY GOLD MD 01/11/19 Discontinued Reported Medications Quetiapine Fumarate* (Quetiapine Fumarate*) 100 Mg Tablet, 100 MG PO HS, TAB 12/01/18 Discontinued Scripts Ibuprofen* (Motrin*) 600 Mg Tab, 600 MG PO Q6, #10 TAB Prov:SOLIS CANO MD 12/17/18 Ibuprofen* (Motrin*) 600 Mg Tab, 600 MG PO Q6, #30 TAB Prov:YANNI NAVARRO PA-C 11/30/18 Allergies Allergies: Coded Allergies: No Known Allergy (Unverified , 01/11/19) PMhx/Soc History of Surgery: Yes (right arm: 'doesn't want to talk about it') Anesthesia Reaction: No Hx Neurological Disorder: Yes (SEIZURE) Hx Respiratory Disorders: No Hx Cardiac Disorders: Yes (HTN) Hx Psychiatric Problems: Yes (schizoprenia, ANXIETY, PRIOR SI ATTEMPTS. ) Hx Miscellaneous Medical Probl: No Hx Alcohol Use: No Hx Substance Use: Yes (DAILY METH USE) Hx Tobacco Use: Yes Physical Exam Vitals Vital Signs Date Temp Pulse Resp B/P (MAP) Pulse Ox O2 O2 Flow FiO2 Time Delivery Rate 01/11/19 99 16 152/75 99 Room Air 17:25 (100) 01/11/19 114 13 150/97 100 Room Air 16:21 (114) 01/11/19 98.9 129 18 136/91 100 16:10 (106) Physical Exam Const: No acute distress. Head: Atraumatic. Eyes: Normal Conjunctiva. ENT: Normal External Ears, Nose and Mouth. Neck: Full range of motion. No meningismus. Resp: Clear to auscultation bilaterally. Cardio: Regular tachycardic Abd: Soft, non distended, normal bowel sounds, non tender. Skin: No petechiae or rashes. Back: No midline or flank tenderness. Ext: No cyanosis, or edema. Neur: Awake and alert. No focal deficit Psych: Normal Mood and Affect. Results 24 hrs Current Medications Medications Dose Sig/Isha Start Time Status Last (Trade) Ordered Route PRN Stop Time Admin Dose Reason Admin Ibuprofen 600 mg ONCE ONCE 01/11/19 DC 01/11/19 (Motrin) PO 17:30 01/11/19 17:19 17:31 Procedures/[place] [id number] Radiology Main Line: [phone] DIAGNOSTIC IMAGING REPORT Patient: KAMLESH MATHEWS : 1990 Age: 28 Sex: M MR #: [id number] DOS: 01/11/19 1617 Ordering MD: JEIMY GOLD MD Location: E/R Room/Bed: PROCEDURE: XR Chest AP portable CLINICAL INDICATION: Short of breath TECHNIQUE: An AP portable radiograph of the chest was submitted. COMPARISON: 01/01/2019 FINDINGS: Support Hardware: None Cardiovascular: The cardiovascular silhouette appears unremarkable. Lung Walters: The lung walters and pleural spaces are clear. Pleural Spaces: No pneumothorax or pleural effusion is identified. Osseous Structures: The osseous structures appear intact. Soft Tissues: Unremarkable IMPRESSION: Stable portable chest without evidence of active cardiopulmonary disease. Physician Rafi Date Time Electronically viewed and signed by Physician Rafi on 01/11/2019 16:45 RH/ CC: JEIMY GOLD MD [phone] EKG: Read by emergency physician Rate/Rhythm: Sinus tachycardia 107 beats/min QRS, ST, T-waves: No ST elevation, no T inversion, RAD, artifacts Impression: Abnormal EKG MEDICAL MAKING DECISION: The patient is a 28-year-old male, presenting with acute left chest wall pain, treated with Motrin 6 mg p.o. for pain with good response, is stable for outpatient follow-up The differential diagnoses considered include but are not limited to acute coronary syndrome, acute myocardial infarction, pericarditis, pulmonary embolism, aortic dissection, pneumonia, pleural effusion, pneumothorax, GERD, chest wall pain. Departure Diagnosis: Primary Impression: Chest wall pain Condition: Good Comments He was discharged with Motrin I discussed the findings with the patient. I advised the patient to follow-up with the primary physician in about 1-2 days, sooner if needed and return if any concern. Disclaimer: Inadvertent spelling and grammatical errors are likely due to EHR/dictation software use and do not reflect on the overall quality of patient care. Also, please note that the electronic time recorded on this note does not necessarily reflect the actual time of the patient encounter. JEIMY GOLD MD Jan 11, 2019 16:11
[2019-01-11 17:25] VITALS: BP 152/75; PULSE 99; RESP 16
[2019-01-11] MEDS ORDERED: IBUPROFEN 600 MG TAB PO ONE (17:30)
== END 2019-01-11 17:36 | disposition home or self-care (01) ==
LOC: E/R 15:57
DX: I10 Essential (primary) hypertension (principal); Z87.891 Personal history of nicotine dependence
CPT/HCPCS: 71045; 93005; Z7502; Z7610

== ENCOUNTER 2019-02-09 11:42 | Emergency (ER) | payer OTHER ==
[~2019-02-09] VITALS: Ht 170.2 cm; Wt 80.0 kg
[~2019-02-09 11:42] MED LIST changes: +CLON1TAB13 PO; -QUET100T32 PO
[2019-02-09 12:01] VITALS: Ht 170.2 cm; Wt 80.0 kg
[2019-02-09] MEDS ORDERED: LORAZEPAM 1 MG TAB PO ONE (12:30)
[2019-02-09] MEDS ORDERED: OLANZAPINE (ODT) 5 MG TAB ODT ONE (13:30)
[2019-02-09] MEDS ORDERED: OLANZAPINE (ODT) 5 MG TAB ODT SCH (21:00)
[2019-02-10 15:34] VITALS: BP 114/69; PULSE 91; RESP 15
== END 2019-02-10 15:34 ==
LOC: E/R 11:42
DX: F15.10 Other stimulant abuse, uncomplicated (principal); R45.851 Suicidal ideations; I10 Essential (primary) hypertension; F17.210 Nicotine dependence, cigarettes, uncomplicated
CPT/HCPCS: 71045; 80053; 80307; 81001; 85025; 93005; Z7502; Z7610

== ENCOUNTER 2019-03-04 19:30 | Emergency (ER) | payer OTHER ==
[~2019-03-04] VITALS: Ht 177.8 cm; Wt 75.7 kg
[2019-03-04 19:38] VITALS: Ht 177.8 cm; Wt 75.7 kg
[2019-03-04] MEDS ORDERED: LORAZEPAM 1 MG TAB PO ONE (21:00)
[2019-03-05 04:13] VITALS: BP 155/76; PULSE 82; RESP 18
== END 2019-03-05 04:13 | disposition home or self-care (01) ==
LOC: E/R 19:30
DX: F15.10 Other stimulant abuse, uncomplicated (principal); I10 Essential (primary) hypertension; F17.210 Nicotine dependence, cigarettes, uncomplicated
CPT/HCPCS: Z7502; Z7610; 93005

== ENCOUNTER 2019-04-05 14:27 | Emergency (ER) | payer OTHER ==
[~2019-04-05] VITALS: Ht 177.8 cm; Wt 73.6 kg
[2019-04-05 14:30] VITALS: Ht 177.8 cm; Wt 73.6 kg
[2019-04-05 15:05] VITALS: BP 157/79; PULSE 82; RESP 18
== END 2019-04-05 15:05 | disposition home or self-care (01) ==
LOC: E/R 14:27
DX: F15.10 Other stimulant abuse, uncomplicated (principal); I10 Essential (primary) hypertension; F17.210 Nicotine dependence, cigarettes, uncomplicated
CPT/HCPCS: 99282

== ENCOUNTER 2019-04-14 12:23 | Emergency (ER) | payer SELFPAY ==
[~2019-04-14] VITALS: Ht 154.9 cm; Wt 74.0 kg
[~2019-04-14 12:23] MED LIST changes: -IBUP-1542 PO
[2019-04-14 12:26] VITALS: Ht 154.9 cm; Wt 74.0 kg
[2019-04-14 14:05] VITALS: BP 127/78; PULSE 76; RESP 16
== END 2019-04-14 13:59 | disposition home or self-care (01) ==
LOC: E/R 12:23
DX: F41.9 Anxiety disorder, unspecified (principal); I10 Essential (primary) hypertension; F17.210 Nicotine dependence, cigarettes, uncomplicated
CPT/HCPCS: 99283